=== PATIENT | female | born 1940 | race Caucasian/White ===

== ENCOUNTER 2021-10-10 10:32 | Emergency (ER) | payer MEDICARE, BC, SELFPAY ==
[2021-10-10 10:49] VITALS: BP 181/103; PULSE 104; RESP 18; TEMP 36.6; O2SAT 96; BMI 38.4
--- NOTE | 2021-10-10 11:05 | CRLHL7_ITS ---
For Patients: As a result of the Cures Act, medical imaging exams and procedure reports are released immediately into your electronic medical record. You may view this report before your referring provider. If you have questions, please contact your health care provider. INDICATION: Vomiting, cough. TECHNIQUE: Chest radiograph 1 view COMPARISON: 02/18/2018 FINDINGS: Cardiovascular and mediastinum: The heart silhouette is normal in size and morphology. The mediastinum is normal in appearance. Lungs and pleural spaces: Both lungs are unremarkable in appearance. No sign of pleural effusion seen. No pneumothorax is identified. Bones and soft tissues: No significant findings. IMPRESSION: 1. No acute cardiopulmonary disease is seen. Dictated by Pepe Clay MD @ 10/10/2021 12:02:33 PM Dictated by: Pepe Clay MD @ 10/10/2021 12:02:39 (Electronically Signed)
--- NOTE | 2021-10-10 11:32 | ED_ITS ---
HPI - Nausea/Vomiting/Diarrhea General Chief complaint: Nausea/Vomiting Stated complaint: Vomiting Time Seen by Provider: 10/10/21 11:04 Source: patient, family and RN notes reviewed History of Present Illness HPI Narrative: 81-year-old woman presenting to the emergency department with her daughter with complaint recurrent vomiting. No hematemesis. No fever. No chills/rigors. Began vomiting earlier this morning as continue periodically. She does not have any pain noting though at the same time that she has a high pain tolerance. She does not apparently have any urinary tract symptoms when I inquire about frequency urgency or dysuria she again says she has a high pain tolerance. No ill contacts. Lives relatively independently with her son. Is fully vaccinated for COVID pending another booster. Daughter here was worried that maybe she had some fluid on her lungs as she tends to be coughing around I think these episodes of vomiting. Apart from that she is not short of breath and without chest pain. Reports some years ago that had a cardiac echo though I can not find record of that my review of records here. Unclear reason for that though again had mentioned a history of what sounds like some pulmonary edema/effusion. Medical Problems: Hypertension Near syncope Cataract Surgical Problems: S/P hysterectomy S/P dilatation and curettage S/P tonsillectomy and adenoidectomy Related Data Home Medications Medication Instructions Recorded Confirmed aspirin 81 mg capsule 81 mg PO DAILY 10/10/21 10/10/21 multivitamin 1 tab PO DAILY 10/10/21 10/10/21 Previous Rx's Medication Instructions Recorded hydrochlorothiazide 12.5 mg capsule 12.5 mg PO QDAY #90 caps 09/05/21 Allergies Allergy/AdvReac Type Severity Reaction Status Date / Time Penicillins Allergy Verified 10/10/21 10:49 Review of Systems Status of ROS: Reports: 10 or more systems reviewed and unremarkable except as noted in History and below Exam Narrative: Exam Narrative: Is pleasant with good energy. Fully alert and answering questions easily, speaking fluidly. Breathing easily with clear lungs. Cardiovascular initially heard a couple irregular beats but otherwise it sounded to be quite regular. No MR or G appreciated. By the time of my auscultation I would not say she was actually tachycardic Abdomen with normoactive bowel sounds is little overweight soft and nontender. She has a reproducible/palpable infra-umbilical hernia Lower extremities with dependent edema and prominent small varicosities. Const: Vital Signs, click to edit/add: Vital Signs - 24 hr 10/10/21 10:49 Temperature 97.9 F Pulse Rate [Right Pulse Oximeter] 104 H Respiratory Rate 18 Blood Pressure [Ri ght Upper Arm] 181/103 H Pulse Oximetry 96 Oxygen Delivery Me thod Room Air Documenting provider has reviewed patient's vital signs: yes Course Course Hospital Course: Initiating tentative fluid resuscitation. Blood cultures obtained. Was tachycardic on arrival though I would say more elevated heart rate when I was listening. Reevaluation(s) Reevaluation #1: Remains tachycardic but comfortable. White count not elevated. Pending EKG. CXR by my read appears clear of acute cardiopulmonary disease. Time: 12:18 Reevaluation #2: Continues to feel quite well. Thinks she could discharge home. Labs generally unremarkable other than slightly elevated proBNP. This seems not be a surprise to her. Time: 13:50 Vital Signs Vital signs: Initial Vital Signs Temperature 97.9 F 10/10/21 10:49 Temperature Source Temporal Artery Scan 10/10/21 10:49 Pulse Rate 104 H 10/10/21 10:49 Respiratory Rate 18 10/10/21 10:49 Blood Pressure 181/103 H 10/10/21 10:49 Blood Pressure Mean 129 10/10/21 10:49 Blood Pressure Position Sitting 10/10/21 10:49 Pulse Oximetry 96 10/10/21 10:49 Oxygen Delivery Method 10/10/21 10:49 Vital Signs Temperature 97.9 F 10/10/21 10:49 Pulse Rate 104 H 10/10/21 10:49 Respiratory Rate 18 10/10/21 10:49 Blood Pressure 181/103 H 10/10/21 10:49 Pulse Oximetry 96 10/10/21 10:49 Oxygen Delivery Method 10/10/21 10:49 Temperature 97.9 F 10/10/21 10:49 Pulse Rate 97 10/10/21 13:00 Respiratory Rate 16 10/10/21 13:00 Blood Pressure 175/97 H 10/10/21 13:00 Pulse Oximetry 92 10/10/21 13:00 Oxygen Delivery Method 10/10/21 13:00 MDM - Nausea/Vomiting/Diarrhea Lab Data Attestation: I reviewed the patient's lab results. Labs: Lab Results 10/10/21 10/10/21 10/10/21 Range/Units 11:25 11:25 11:25 WBC 9.19 (4.50-11.00) K/uL RBC 5.46 H (4.00-5.20) m/uL Hgb 15.3 (12.0-16.0) gm/dL Hct 47.0 (33.0-51.0) % MCV 86 (80-100) fL MCH 28 (26-34) pg MCHC 33 (32-36) gm/dL RDW Coeff of Helen 13.8 (11.5-15.5) % Plt Count 115 L (140-440) K/uL Neut % (Auto) 88.7 H (42.0-72.0) % Lymph % (Auto) 7.4 L (20-44) % [place] % (Auto) 3.7 (0.0-11.0) % Eos % (Auto) 0.0 (0.0-7.0) % Baso % (Auto) 0.1 (0.0-3.0) % Neut # (Auto) 8.20 H (1.7-7.0) K/uL Lymph # (Auto) 0.70 L (0.90-2.90) K/uL [place] # (Auto) 0.30 (0.00-0.90) K/UL Eos # (Auto) 0.00 (0.00-0.50) K/uL Baso # (Auto) 0.01 (0.00-0.30) K/uL Abs Immat Gran (auto) 0.01 (0.00-0.30) K/uL VBG pH (7.32-7.43) VBG pCO2 (40-50) mmHG VBG pO2 (25-47) mmHG VBG HCO3 (21-28) mmol/L Sodium 138 (135-149) mmol/L Potassium 3.7 (3.6-5.1) mmol/L Chloride 100 (96-114) mmol/L Carbon Dioxide 27 (20-32) mmol/L BUN 29 (7-30) mg/dL Creatinine 0.9 (0.5-1.5) mg/dL Estimated Creat Clear 30.62 Estimated GFR 63 ml/min Glucose 149 H (60-115) mg/dL Venous Lactic Acid (Serial Order) Calcium 9.0 (8.4-10.6) mg/dL Magnesium 1.8 (1.5-2.6) mg/dL Total Bilirubin 0.7 (0.1-1.5) mg/dL AST 22 (12-35) U/L ALT 15 (4-35) U/L Alkaline Phosphatase 79 (40-150) U/L Troponin I (0.01-0.04) ng/mL C-Reactive Protein 0.6 (0.5-1.0) mg/dL NT-Pro-B Natriuret Pep (0-450) PG/mL Total Protein 7.4 (6.0-8.3) g/dL Albumin 4.2 (3.3-5.0) g/dL SARS-CoV-2 (PCR) Negative SARS-CoV-2 (Negative) Influenza Type A (PCR) Negative PCR FLU A (Negative) Influenza Type B (PCR) Negative PCR FLU B (Negative) POC Troponin I (0.01-0.04) ng/ml 10/10/21 10/10/21 10/10/21 Range/Units 11:25 11:25 11:58 WBC (4.50-11.00) K/uL RBC (4.00-5.20) m/uL Hgb (12.0-16.0) gm/dL Hct (33.0-51.0) % MCV (80-100) fL MCH (26-34) pg MCHC (32-36) gm/dL RDW Coeff of Helen (11.5-15.5) % Plt Count (140-440) K/uL Neut % (Auto) (42.0-72.0) % Lymph % (Auto) (20-44) % [place] % (Auto) (0.0-11.0) % Eos % (Auto) (0.0-7.0) % Baso % (Auto) (0.0-3.0) % Neut # (Auto) (1.7-7.0) K/uL Lymph # (Auto) (0.90-2.90) K/uL [place] # (Auto) (0.00-0.90) K/UL Eos # (Auto) (0.00-0.50) K/uL Baso # (Auto) (0.00-0.30) K/uL Abs Immat Gran (auto) (0.00-0.30) K/uL VBG pH 7.429 (7.32-7.43) VBG pCO2 45 (40-50) mmHG VBG pO2 46.2 (25-47) mmHG VBG HCO3 30 H (21-28) mmol/L Sodium (135-149) mmol/L Potassium (3.6-5.1) mmol/L Chloride (96-114) mmol/L Carbon Dioxide (20-32) mmol/L BUN (7-30) mg/dL Creatinine (0.5-1.5) mg/dL Estimated Creat Clear Estimated GFR ml/min Glucose (60-115) mg/dL Venous Lactic Acid (Serial Order) Calcium (8.4-10.6) mg/dL Magnesium (1.5-2.6) mg/dL Total Bilirubin (0.1-1.5) mg/dL AST (12-35) U/L ALT (4-35) U/L Alkaline Phosphatase (40-150) U/L Troponin I < 0.01 L (0.01-0.04) ng/mL C-Reactive Protein (0.5-1.0) mg/dL NT-Pro-B Natriuret Pep 536 H (0-450) PG/mL Total Protein (6.0-8.3) g/dL Albumin (3.3-5.0) g/dL SARS-CoV-2 (PCR) (Negative) Influenza Type A (PCR) (Negative) Influenza Type B (PCR) (Negative) POC Troponin I (0.01-0.04) ng/ml 10/10/21 Range/Units 11:58 WBC (4.50-11.00) K/uL RBC (4.00-5.20) m/uL Hgb (12.0-16.0) gm/dL Hct (33.0-51.0) % MCV (80-100) fL MCH (26-34) pg MCHC (32-36) gm/dL RDW Coeff of Helen (11.5-15.5) % Plt Count (140-440) K/uL Neut % (Auto) (42.0-72.0) % Lymph % (Auto) (20-44) % [place] % (Auto) (0.0-11.0) % Eos % (Auto) (0.0-7.0) % Baso % (Auto) (0.0-3.0) % Neut # (Auto) (1.7-7.0) K/uL Lymph # (Auto) (0.90-2.90) K/uL [place] # (Auto) (0.00-0.90) K/UL Eos # (Auto) (0.00-0.50) K/uL Baso # (Auto) (0.00-0.30) K/uL Abs Immat Gran (auto) (0.00-0.30) K/uL VBG pH (7.32-7.43) VBG pCO2 (40-50) mmHG VBG pO2 (25-47) mmHG VBG HCO3 (21-28) mmol/L Sodium (135-149) mmol/L Potassium (3.6-5.1) mmol/L Chloride (96-114) mmol/L Carbon Dioxide (20-32) mmol/L BUN (7-30) mg/dL Creatinine (0.5-1.5) mg/dL Estimated Creat Clear Estimated GFR ml/min Glucose (60-115) mg/dL Venous Lactic Acid (Serial Order) Calcium (8.4-10.6) mg/dL Magnesium (1.5-2.6) mg/dL Total Bilirubin (0.1-1.5) mg/dL AST (12-35) U/L ALT (4-35) U/L Alkaline Phosphatase (40-150) U/L Troponin I (0.01-0.04) ng/mL C-Reactive Protein (0.5-1.0) mg/dL NT-Pro-B Natriuret Pep (0-450) PG/mL Total Protein (6.0-8.3) g/dL Albumin (3.3-5.0) g/dL SARS-CoV-2 (PCR) (Negative) Influenza Type A (PCR) (Negative) Influenza Type B (PCR) (Negative) POC Troponin I 0.01 (0.01-0.04) ng/ml ECG Data Attestation: I personally reviewed and interpreted this ECG as follows: (Normal sinus rate of 95. Bifascicular block similar to February of 2018) Discharge Plan Discharge Clinical Impression: Vomiting, Dehydration Patient Disposition: Home w/ Parent or Adult Condition: Stable Additional Instructions: Focus on hydration. Slow advance of diet over the next 24-36 hours. Diluted juices and broths to thicker soups and smoothies. [place]. Rice. Return for intractable vomiting or intractable diarrhea. Marked increase in abdominal pain, associated fever. Zofran from [employer] if needed. Check your blood pressure in a few days a couple of times. Prescriptions: No Action aspirin 81 mg capsule 81 mg PO DAILY multivitamin Tablet 1 tab PO DAILY hydrochlorothiazide 12.5 mg capsule 12.5 mg PO QDAY Qty: 90 3RF Follow Up/Referrals: Pato Simms MD [Primary Care Provider] - Stand Alone Forms: [employer] Info Instructions
[2021-10-10 11:37] LABS: HCO3 VBG 30 mmol/L (21-28); PCO2 VBG 45 mmHG (40-50); PO2 VBG 46.2 mmHG (25-47); pH VBG 7.429 (7.32-7.43)
[2021-10-10 11:39] LABS: Lactate Sepsis w/Reflex* 1.2 mmol/L (0.5-1.9)
[2021-10-10 11:40] VITALS: BP 138/75
[2021-10-10 11:42] LABS: Basophils Absolute Auto 0.01 K/uL (0.00-0.30); Basophils Percent Auto 0.1 % (0.0-3.0); Hemoglobin* 15.3 gm/dL (12.0-16.0); Immature Granulocytes Abs Auto 0.01 K/uL (0.00-0.30); Lymphocytes Percent Auto 7.4 % (20-44); Mean Corpuscular HGB Conc 33 gm/dL (32-36); Mean Corpuscular Hemoglobin 28 pg (26-34); Mean Corpuscular Volume 86 fL (80-100); Monocytes Percent Auto 3.7 % (0.0-11.0); Neutrophils Percent Auto 88.7 % (42.0-72.0); Platelet Count* 115 K/uL (140-440); RDW Coefficient of Variation % 13.8 % (11.5-15.5); Red Blood Count 5.46 m/uL (4.00-5.20); White Blood Count* 9.19 K/uL (4.50-11.00)
[2021-10-10] MEDS: LACTATED RINGERS 1000 ML IV (11:51)
[2021-10-10 11:57] LABS: Slide Review Reflex No
[2021-10-10 12:00] LABS: Albumin* 4.2 g/dL (3.3-5.0); Chloride* 100 mmol/L (96-114); Sodium* 138 mmol/L (135-149)
[2021-10-10 12:01] LABS: Potassium* 3.7 mmol/L (3.6-5.1)
[2021-10-10 12:02] LABS: Creatinine* 0.9 mg/dL (0.5-1.5); Est. Creatinine Clearance* 30.62; Estimated Glomerular Filt Rate 63 ml/min
[2021-10-10 12:03] LABS: Alkaline Phosphatase* 79 U/L (40-150); Aspartate Amino Transferase* 22 U/L (12-35); Bilirubin Total* 0.7 mg/dL (0.1-1.5); Blood Urea Nitrogen* 29 mg/dL (7-30); Carbon Dioxide* 27 mmol/L (20-32); Total Protein* 7.4 g/dL (6.0-8.3)
[2021-10-10 12:04] LABS: Alanine Aminotransferase* 15 U/L (4-35); Glucose* 149 mg/dL (60-115); Magnesium* 1.8 mg/dL (1.5-2.6)
[2021-10-10 12:06] LABS: C Reactive Protein* 0.6 mg/dL (0.5-1.0)
[2021-10-10 12:30] VITALS: BP 138/75; PULSE 91; RESP 16; O2SAT 94
[2021-10-10 12:32] LABS: PCR FLU A Negative PCR FLU A (Negative); PCR FLU B Negative PCR FLU B (Negative)
[2021-10-10 12:33] LABS: SARS PCR* Negative SARS-CoV-2 (Negative)
[2021-10-10 12:38] LABS: NT Pro B Type NatriureticPept* 536 PG/mL (0-450)
[2021-10-10 12:42] LABS: Troponin I* < 0.01 ng/mL (0.01-0.04)
[2021-10-10 12:44] LABS: Troponin, Point-of-Care* 0.01 ng/ml (0.01-0.04)
[2021-10-10 13:00] VITALS: BP 175/97; PULSE 97; RESP 16; O2SAT 92
== END 2021-10-10 14:11 | disposition home or self-care (01) ==
PROVIDERS: Emergency Provider Family Medicine; PCP Family Medicine
DX: E86.0 Dehydration (principal); R11.10 Vomiting, unspecified
CPT/HCPCS: 36415; 71045; 80053; 82803; 83690; 83735; 83880; 84484; 85025; 86140; 87040; 87631; 93005; 96374; 99284; J7120

== ENCOUNTER 2022-08-26 17:04 | Emergency (ER) | payer MEDICARE, BC, SELFPAY ==
[2022-08-26] VITALS (19 sets, daily range): BP systolic 125–160; BP diastolic 51–81; PULSE 76–97; RESP 22; TEMP 36.3; O2SAT 95–99
--- NOTE | 2022-08-26 17:29 | ED_ITS ---
HPI - General Adult General Chief complaint: Chest Pain Stated complaint: Chest Pain Time Seen by Provider: 08/26/22 17:16 History of Present Illness HPI narrative: chest pain since this am with some radiation to right arm, was resting when it came on, has not subsided and remains constant, mild nausea 82-year-old woman presenting to the emergency department with complaint of a burning type midsternal chest discomfort. Denies significant heartburn. This began six or seven hours ago and has continued though by the time I am seeing her, it has lessened markedly. Occurred at rest. She doesn't have any heart problems. No significant family history. She then started to have some discomfort into her right arm of a similar quality. This prompted more concern. No shortness of breath. Not exactly chest pain. No lightheadedness. No arrhythmia noted. No fevers or vomiting episodes recently. no diarrhea. presents initially with her son and then with her daughter. Related Data Home Medications Medication Instructions Recorded Confirmed aspirin 81 mg capsule 81 mg PO DAILY 10/10/21 10/10/21 multivitamin 1 tab PO DAILY 10/10/21 10/10/21 Previous Rx's Medication Instructions Recorded hydrochlorothiazide 12.5 mg capsule 12.5 mg PO QDAY #90 caps 09/05/21 Allergies Allergy/AdvReac Type Severity Reaction Status Date / Time Penicillins Allergy Verified 08/29/22 10:09 Review of Systems Status of ROS: Reports: 6 or more systems reviewed and unremarkable except as noted in History and below [facility] Social History Smoking Status: Unknown if ever smoked Exam Narrative: Exam Narrative: Pleasant. NAD. Rather high energy. Skin is warm and dry. Extremities are well perfused without edema. She's moving extremities without difficulty. No sensory deficits and no weakness. Lungs are clear not clearly able to reproduce to palpation her pain in the upper back/periscapular area. No flank pain. Abdomen is overweight soft and little uncomfortable to palpation in the epigastrium. No chest pain to palpation. Heart is in a regular rhythm and in an elevated rate. Skin is warm and dry. Const: Vital Signs, click to edit/add: Vital Signs - 24 hr 08/26/22 17:15 Temperature 97.3 F L Pulse Rate [Right Pulse Oximeter] 96 Respiratory Rate 22 Blood Pressure [Le ft Upper Arm] 160/75 H Pulse Oximetry 99 Oxygen Delivery Me thod Room Air Documenting provider has reviewed patient's vital signs: yes Course Vital Signs Vital signs: Initial Vital Signs Temperature 97.3 F L 08/26/22 17:15 Temperature Source Temporal Artery Scan 08/26/22 17:15 Pulse Rate 96 08/26/22 17:15 Respiratory Rate 22 08/26/22 17:15 Respiratory Effort Normal, Spontaneous, Non-Labored 08/26/22 17:15 Respiratory Depth Normal 08/26/22 17:15 Respiratory Pattern Normal 08/26/22 17:15 Blood Pressure 160/75 H 08/26/22 17:15 Blood Pressure Mean 103 08/26/22 17:15 Blood Pressure Position Sitting 08/26/22 17:15 Pulse Oximetry 99 08/26/22 17:15 Oxygen Delivery Method Room Air 08/26/22 17:15 Vital Signs Temperature 97.3 F L 08/26/22 17:15 Pulse Rate 96 08/26/22 17:15 Respiratory Rate 22 08/26/22 17:15 Blood Pressure 160/75 H 08/26/22 17:15 Pulse Oximetry 99 08/26/22 17:15 Oxygen Delivery Method Room Air 08/26/22 17:15 Temperature 97.3 F L 08/26/22 17:15 Pulse Rate 96 08/26/22 20:53 Respiratory Rate 22 08/26/22 17:15 Blood Pressure 143/51 H 08/26/22 20:02 Pulse Oximetry 96 08/26/22 20:53 Oxygen Delivery Method Room Air 08/26/22 17:15 Medical Decision Making MDM Narrative Medical decision making narrative: I think this does warrant evaluation for vascular disruption, cardiovascular event including dysrhythmia or ischemic episode, evaluation for upper abdominal pain including pancreatitis or gallbladder/liver disease. No respiratory symptoms but I suppose it could be a low lying pneumonia, maybe pulmonary embolus or pnaumothorax CXR by my read wnl. no pneumo. No interventions needed. Labs most remarkable for elevated transaminases and lipase. I think this degree of inflammation probably explains mild elevation in d-dimer as well. Limited and ultrasound was done. I discussed these findings with the screen handler. Essentially cholelithiasis without inflammatory changes. FINDINGS: Liver: Normal in size and echotexture. No suspicious masses. No intrahepatic biliary dilatation. Gallbladder: Contains several small stones. Normal wall thickness. No pericholecystic fluid. Common bile duct: 9 mm. This is within normal limits for age Pancreas: Limited visualization is unremarkable. Right kidney: Normal in size. 1.3 cm simple exophytic cyst. Mild prominence of the renal collecting system, could represent mild hydronephrosis.. Vasculature: Proximal abdominal aorta and IVC are unremarkable. IMPRESSION: Cholelithiasis. No evidence for cholecystitis. Mild prominence of the renal collecting system, could represent mild hydronephrosis. Unremarkable liver. Discussed ultrasound findings and labs with general surgery. Suspect possibly a passed stone. Recommending follow up for repeat labs and general surgery consultation. Ms. Sylvester painfree and anxious to leave for some time. See patient discharge plan. Lab Data Lab results reviewed: Yes I reviewed the patient's lab results Labs: Lab Results 08/26/22 08/26/22 Range/Units 17:42 17:50 WBC 6.99 (4.50-11.00) K/uL RBC 5.35 H (4.00-5.20) m/uL Hgb 14.7 (12.0-16.0) gm/dL Hct 46.2 (33.0-51.0) % MCV 86 (80-100) fL MCH 28 (26-34) pg MCHC 32 (32-36) gm/dL RDW Coeff of Helen 13.6 (11.5-15.5) % Plt Count 93 L (140-440) K/uL Neut % (Auto) 84.1 H (42.0-72.0) % Lymph % (Auto) 10.0 L (20-44) % [place] % (Auto) 5.4 (0.0-11.0) % Eos % (Auto) 0.1 (0.0-7.0) % Baso % (Auto) 0.3 (0.0-3.0) % Neut # (Auto) 5.90 (1.7-7.0) K/uL Lymph # (Auto) 0.70 L (0.90-2.90) K/uL [place] # (Auto) 0.40 (0.00-0.90) K/UL Eos # (Auto) 0.01 (0.00-0.50) K/uL Baso # (Auto) 0.02 (0.00-0.30) K/uL Abs Immat Gran (auto) 0.01 (0.00-0.30) K/uL Imm/Tot Granulo (auto) 0.1 % D-Dimer Quant (PE/DVT) 1.76 H (0.00-0.50) ug/ml Sodium 136 (135-149) mmol/L Potassium 4.3 (3.6-5.1) mmol/L Chloride 100 (96-114) mmol/L Carbon Dioxide 31 (20-32) mmol/L BUN 30 (7-30) mg/dL Creatinine 0.9 (0.5-1.5) mg/dL Estimated GFR 63 ml/min Glucose 143 H (60-115) mg/dL Calcium 9.2 (8.4-10.6) mg/dL Total Bilirubin 2.6 H (0.1-1.5) mg/dL Direct Bilirubin 1.7 H (0.0-0.5) mg/dL AST 428 H (12-35) U/L ALT 482 H (4-35) U/L Alkaline Phosphatase 124 (40-150) U/L Troponin I < 0.01 L (0.01-0.04) ng/mL C-Reactive Protein < 0.5 L (0.5-1.0) mg/dL NT-Pro-B Natriuret Pep 791 pg/mL Total Protein 7.0 (6.0-8.3) g/dL Albumin 4.1 (3.3-5.0) g/dL Lipase 6627 H (23-300) U/L POC Troponin I 0.00 L (0.01-0.04) ng/ml ECG Data Attestation: I personally reviewed and interpreted this ECG as follows: (Bifascicular block at a rate of 98) Discharge Plan Discharge Clinical Impression: Abdominal pain, epigastric, Cholelithiasis Patient Disposition: Home w/ Parent or Adult Condition: Improved Additional Instructions: stay well hydrated. return for increased and persistent pain, repeated vomiting, associated fever. please follow up in clinic to recheck labs in the middle of next week. please also call to schedule with General Surgery within the next 2 weeks. Prescriptions: No Action aspirin 81 mg capsule 81 mg PO DAILY multivitamin Tablet 1 tab PO DAILY hydrochlorothiazide 12.5 mg capsule 12.5 mg PO QDAY Qty: 90 3RF Follow Up/Referrals: Pato Simms MD [Primary Care Provider] - Stand Alone Forms: [employer] Info Instructions
--- NOTE | 2022-08-26 17:42 | CRLHL7_ITS ---
For Patients: As a result of the Century Cures Act, medical imaging exams and procedure reports are released immediately into your electronic medical record. You may view this report before your referring provider. If you have questions, please contact your health care provider. INDICATION: Burning mid chest pain. TECHNIQUE: Portable AP chest. COMPARISON: 10/10/2021. FINDINGS: Lungs are clear. Normal heart size and pulmonary vascularity. No pleural effusion. No pneumothorax. IMPRESSION: Normal chest. Dictated by Desmond Santiago MD @ 08/26/2022 7:09:02 PM (Electronically Signed)
[2022-08-26 18:02] LABS: Basophils Absolute Auto 0.02 K/uL (0.00-0.30); Basophils Percent Auto 0.3 % (0.0-3.0); Eosinophils Absolute Auto 0.01 K/uL (0.00-0.50); Eosinophils Percent Auto 0.1 % (0.0-7.0); Hematocrit 46.2 % (33.0-51.0); Hemoglobin* 14.7 gm/dL (12.0-16.0); Immature Granulocytes Abs Auto 0.01 K/uL (0.00-0.30); Immature Granulocytes Pct Auto 0.1 %; Mean Corpuscular HGB Conc 32 gm/dL (32-36); Mean Corpuscular Hemoglobin 28 pg (26-34); Mean Corpuscular Volume 86 fL (80-100); Monocytes Percent Auto 5.4 % (0.0-11.0); Neutrophils Percent Auto 84.1 % (42.0-72.0); Platelet Count* 93 K/uL (140-440); RDW Coefficient of Variation % 13.6 % (11.5-15.5); Red Blood Count 5.35 m/uL (4.00-5.20); White Blood Count* 6.99 K/uL (4.50-11.00)
[2022-08-26 18:27] LABS: Slide Review Reflex No
[2022-08-26 18:28] LABS: Chloride* 100 mmol/L (96-114)
[2022-08-26 18:29] LABS: Potassium* 4.3 mmol/L (3.6-5.1); Sodium* 136 mmol/L (135-149)
[2022-08-26 18:30] LABS: Albumin* 4.1 g/dL (3.3-5.0)
[2022-08-26 18:31] LABS: Creatinine* 0.9 mg/dL (0.5-1.5); Estimated Glomerular Filt Rate 63 ml/min
[2022-08-26 18:32] LABS: Blood Urea Nitrogen* 30 mg/dL (7-30); Carbon Dioxide* 31 mmol/L (20-32); D Dimer Quantitative* 1.76 ug/ml (0.00-0.50)
[2022-08-26 18:33] LABS: Alanine Aminotransferase* 482 U/L (4-35); Alkaline Phosphatase* 124 U/L (40-150); Aspartate Amino Transferase* 428 U/L (12-35); Bilirubin Direct* 1.7 mg/dL (0.0-0.5); Bilirubin Total* 2.6 mg/dL (0.1-1.5); Calcium* 9.2 mg/dL (8.4-10.6); Glucose* 143 mg/dL (60-115)
[2022-08-26 18:35] LABS: C Reactive Protein* < 0.5 mg/dL (0.5-1.0)
[2022-08-26 18:49] LABS: NT Pro B Type NatriureticPept* 791 pg/mL; Troponin I* < 0.01 ng/mL (0.01-0.04)
--- NOTE | 2022-08-26 18:54 | CRLHL7_ITS ---
For Patients: As a result of the Century Cures Act, medical imaging exams and procedure reports are released immediately into your electronic medical record. You may view this report before your referring provider. If you have questions, please contact your health care provider. INDICATION: Abdominal pain, elevated transaminases. TECHNIQUE: Ultrasound abdomen limited. Sonographic images of the right upper quadrant were obtained using berry-scale and color Doppler images. COMPARISON: None. FINDINGS: Liver: Normal in size and echotexture. No suspicious masses. No intrahepatic biliary dilatation. Gallbladder: Contains several small stones. Normal wall thickness. No pericholecystic fluid. Common bile duct: 9 mm. This is within normal limits for age Pancreas: Limited visualization is unremarkable. Right kidney: Normal in size. 1.3 cm simple exophytic cyst. Mild prominence of the renal collecting system, could represent mild hydronephrosis.. Vasculature: Proximal abdominal aorta and IVC are unremarkable. IMPRESSION: Cholelithiasis. No evidence for cholecystitis. Mild prominence of the renal collecting system, could represent mild hydronephrosis. Unremarkable liver. Dictated by Chris Jaramillo MD @ 08/26/2022 9:31:09 PM (Electronically Signed)
[2022-08-26 19:55] LABS: Lipase* 6627 U/L (23-300)
== END 2022-08-26 22:00 | disposition home or self-care (01) ==
PROVIDERS: Emergency Provider Family Medicine; PCP Family Medicine
DX: R10.13 Epigastric pain (principal); K80.20 Calculus of gallbladder without cholecystitis without obstruction
CPT/HCPCS: 36415; 71045; 76705; 80048; 80076; 83690; 83880; 84484; 85025; 85379; 86140; 93005; 94761; 99284; 99285

== ENCOUNTER 2022-08-30 15:10 | Outpatient (CLI) | payer MEDICARE, BC, SELFPAY | END 2022-08-30 15:11 | disposition home or self-care (01) | PROVIDERS: PCP Family Medicine; Visit Provider Family Medicine | DX: R10.13 Epigastric pain (principal); I10 Essential (primary) hypertension; K80.20 Calculus of gallbladder without cholecystitis without obstruction | CPT/HCPCS: 80076; 83690 ==

== ENCOUNTER 2022-09-14 08:51 | Day surgery (SDC) | payer MEDICARE, BC, SELFPAY ==
[2022-09-14] VITALS (10 sets, daily range): BP systolic 122–168; BP diastolic 67–93; PULSE 72–89; RESP 14–18; TEMP 36.4–36.8; O2SAT 92–100; BMI 37.0
[2022-09-14] MEDS: LACTATED RINGERS 1000 ML 1,000 ML 100 ML IV (09:00)
[2022-09-14] MEDS: SODIUM CHLORIDE 0.9 % (FLUSH) 10 ML SYRINGE IVF (10:07)
--- NOTE | 2022-09-14 10:30 | CRLHL7_ITS ---
For Patients: As a result of the Century Cures Act, medical imaging exams and procedure reports are released immediately into your electronic medical record. You may view this report before your referring provider. If you have questions, please contact your health care provider. INDICATION : Laparoscopic cholecystectomy. TECHNIQUE : Intraoperative cholangiogram. Contrast injected via gallbladder neck and cystic duct. FINDINGS : Fluoroscopy time was 43.0 seconds. Five images were obtained. IMPRESSION : Normal caliber intra and extrahepatic ducts. No filling defects. Contrast seen within the duodenum. Normal intraoperative cholangiogram. Dictated by Nahum Lewis MD @ 09/14/2022 1:18:14 PM (Electronically Signed)
[2022-09-14] MEDS: BUPIVACAINE 0.25% 30 ML INJECTION (10:50)
--- NOTE | 2022-09-14 10:58 | W.ANESCHARGE ---
Anesthesia Charges Start Date/Time Anesthesia Start Date: 09/14/22 Anesthesia Start Time: 10:26 Stop Date/Time Anesthesia Stop Date: 09/14/22 Anesthesia Stop Time: 12:43 Summary Extremes of Age - Over 70 or under 1: MDA
[2022-09-14] MEDS: 0.9% SODIUM CHL 50 ML VIAL INJECTION (11:48)
[2022-09-14] MEDS: IOPAMIDOL 50 ML VIAL INJECTION (11:48)
--- NOTE | 2022-09-14 12:45 | PM.GSPRC ---
Operative Note Pre-op diagnosis: 1. Cholelithiasis 2. Recent gallstone pancreatitis Post-op diagnosis: Same Type of Procedure: 1. Laparoscopic cholecystectomy 2. Intraoperative cholangiogram Indications: The patient is an 82-year-old female who approximately 2 weeks ago presented to the ER with severe chest and abdominal pain. Workup revealed elevated lipase, LFTs and bilirubin. She had gallstones and common bile duct dilatation. Her pain improved and she was discharged home. On an outpatient basis her labs were recheck and had normalized. She was referred to surgery. I recommended cholecystectomy with intraoperative cholangiogram for a diagnosis of gallstone pancreatitis. After discussion of risks and benefits she agreed to proceed. Procedure Description: After discussing the risks and benefits of the procedure, the patient signed informed consent.? The operative site was marked and the patient was brought to the operating room and placed on the operating table in supine position.? Care was taken to pad the patient's pressure points.?? The patient was then intubated by anesthesia.?? The operative site was then prepped and draped in the usual sterile fashion.? A time-out was then performed. Entrance to the abdomen was gained via a 5 mm Visiport in the left upper quadrant. The abdomen was insufflated and briefly surveyed for signs of injury. There was none. She had adhesions about the umbilicus as well as to the falciform ligament. I was able to create a window with the camera to enter the right abdomen. The right upper quadrant did not have significant adhesions. I placed 2 5 mm working ports in the right upper abdomen along the costal margin. Through this I then passed the camera and was able to lyse the filmy adhesions between the omentum and the abdominal wall sharply with a scissor. Once I was able to create enough space to place my camera port, a 10 mm port was placed just superior and on the right side of the umbilicus. The patient was then placed in reverse Trendelenburg position with the right side up. The gallbladder fundus was grasped and retracted cephalad. There were adhesions to the gallbladder from the fundus to the infundibulum. These were dissected down carefully using cautery. The infundibulum was grasped. A combination of hook cautery and blunt dissection was used to carefully dissect out the cystic duct and artery until they could clearly be seen entering the gallbladder without any intervening structures. The gallbladder was dissected off the cystic plate to achieve the critical view. Once this was achieved the cystic artery was clipped with 2 clips proximally and 1 clip distally and transected with the scissors. The cystic duct was clipped proximally and a ductotomy was created. The distal cystic duct was palpated and found to be impacted with stones. These were very carefully moved pushed backwards out of the duct until bile flowed briskly from the duct opening. I then advanced a cholangiocatheter and performed a saline leak test. Fluoroscopy was brought into the field. Half-strength Omnipaque Dye was injected into the cystic duct with brisk filling of the common bile duct, right and left hepatic ducts and there was filling of the duodenum. Contrast however was very light and therefore full strength dye was injected and it did not appear as though there were any filling defects in the common bile duct. There was contrast in the duodenum. The cholangiocatheter was removed and the duct was clipped with 2 clips distal. The duct was then transected with a scissor. The gallbladder was then taken off of the liver bed and removed from the abdomen using an Endo-Catch bag. The gallbladder bed was surveyed for hemostasis which appeared adequate. A small amount of bile which had spilled was suctioned from the abdomen and care was taken to remove all spilled gallstones. The ports were then removed and the abdomen desufflated. The 10 port fascia was closed with 0 Vicryl. The skin was closed with absorbable subcuticular suture. Sterile dressings were then applied. Instrument sponge and needle counts were correct at the end of the case. The patient was then woken and transferred to the PACU in stable condition. Findings: 1. Multiple intra-abdominal adhesions 2. Multiple gallstones in the gallbladder 3. No filling defect noted on cholangiogram Anesthesia: GETA Surgeon: Evy Ghotra MD Estimated blood loss (mL): 10 Specimen: Gallbladder Condition: stable Disposition: PACU
--- NOTE | 2022-09-14 12:48 | W.ANESCHARGE ---
Anesthesia Charges Start Date/Time Anesthesia Start Date: 09/14/22 Anesthesia Start Time: 10:26 Stop Date/Time Anesthesia Stop Date: 09/14/22 Anesthesia Stop Time: 12:43
== END 2022-09-14 14:23 | disposition home or self-care (01) ==
PROVIDERS: PCP Family Medicine; Visit Provider Surgery
PROC: 0FT44ZZ Resection of Gallbladder, Percutaneous Endoscopic Approach (ICD-10-PCS; CPT 47563; principal; 2022-09-14 10:30)
DX: K85.10 Biliary acute pancreatitis without necrosis or infection (principal); K80.10 Calculus of gallbladder with chronic cholecystitis without obstruction; K82.8 Other specified diseases of gallbladder
CPT/HCPCS: 47563; 00790; 74300; 76000; 88304; 99100; J0330; J0665; J1100; J1885; J2371; J2405; J2704; J3010; J3370; J3490; J7050; J7120; Q9967

== ENCOUNTER 2023-10-29 13:31 | Emergency (ER) | payer MEDICARE, BC, SELFPAY ==
[2023-10-29 13:40] VITALS: BP 157/82; PULSE 84; RESP 16; TEMP 36.4; O2SAT 98; BMI 39.1
--- NOTE | 2023-10-29 13:58 | ED.ABDPAIN ---
HPI - Abdominal Pain General Date Seen: 10/29/23 Chief Complaint: Abdominal Pain Stated Complaint: abd pain, hernia Time Seen by Provider: 10/29/23 13:44 Source: patient Mode of arrival: ambulatory Limitations: no limitations History of Present Illness HPI narrative: Patient is an 83-year-old female presenting to the emergency department for abdominal pain. She has a ventral hernia that she states she has had for while and she usually she can reduce but noticed today it was painful and she cannot reduce it. Has had some mild nausea but has not had any vomiting. Is only painful when she touches her hernia. Denies fevers, chills, weakness, diarrhea, constipation, chest pain, shortness of breath. Previous abdominal surgery includes a cholecystectomy. Has not had previous surgeries on this hernia. No other concerns noted. Related Data Home Medications ?Medication ?Instructions ?Recorded ?Confirmed aspirin 81 mg capsule 81 mg PO DAILY 10/10/21 09/26/22 multivitamin 1 tab PO DAILY 10/10/21 09/26/22 naproxen sodium 220 mg tablet 220 mg PO QDAY PRN 08/30/22 09/26/22 (Aleve) Previous Rx's ?Medication ?Instructions ?Recorded hydrocodone 5 mg-acetaminophen 325 0.5 - 1 tab PO Q6H PRN Pain #5 tabs 09/14/22 mg tablet hydrochlorothiazide 12.5 mg capsule 12.5 mg PO QDAY #90 caps 08/22/23 Allergies Allergy/AdvReac Type Severity Reaction Status Date / Time Penicillins Allergy Verified 09/26/22 09:44 Review of Systems Status of ROS Reports: 10 or more systems reviewed and unremarkable except as noted in History and below [facility] Medical History Hypertension ?I10 - Essential (primary) hypertension (ICD-10) Surgical History Status post D&C ?Z98.890 - Other specified postprocedural states (ICD-10) Status post tonsillectomy and adenoidectomy ?Z90.89 - Acquired absence of other organs (ICD-10) Status post hysterectomy ?Z90.710 - Acquired absence of both cervix and uterus (ICD-10) Social History Narrative: No tobacco or alcohol use. Lives with son. 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 Smoking Status: Unknown if ever smoked How often do you have a drink containing alcohol: never AUDIT-C Alcohol total score: 0 Non-prescribed substance use: denies use Caffeine: Yes Exam Narrative: Exam Narrative: Const: Well-nourished, Well-developed, in mild distress Eyes: PERRL, no conjunctival injection, and symmetrical lids HENT: Atraumatic external nose and ears. Moist mucous membranes. Neck: Symmetric, trachea midline, No thyromegaly. CVS: RRR, No murmurs or gallops. Peripheral pulses 2+ and equal in all extremities RESP: Unlabored respiratory effort. Clear to auscultation bilaterally. GI: Ventral hernia noted just below the umbilicus that is tender to palpation and firm. No overlying skin changes. No rebound or guarding. MSK:Extremities w/o deformity, Normal Active ROM Skin: Warm, Dry. No rashes or lesions. Neuro: Normal Muscle tone, No focal neurological deficits. Psych: Awake, Alert, & Oriented x3. Appropriate mood and affect. Const: Vital Signs, click to edit/add: Vital Signs - 24 hr 10/29/23 13:40 10/29/23 14:37 10/29/23 14:45 Temperature 97.5 F L Pulse Rate 75 65 Pulse Rate [Right Pulse Oximeter] 84 Respiratory Rate 16 Blood Pressure [Ri ght Upper Arm] 157/82 H Pulse Oximetry 98 98 Oxygen Delivery Me thod Room Air 10/29/23 14:50 Temperature Pulse Rate Pulse Rate [Right Pulse Oximeter] Respiratory Rate 16 Blood Pressure [Ri ght Upper Arm] Pulse Oximetry Oxygen Delivery Me thod Course Vital Signs Vital signs: Initial Vital Signs Temperature 97.5 F L 10/29/23 13:40 Temperature Source Temporal Artery Scan 10/29/23 13:40 Pulse Rate 84 10/29/23 13:40 Pulse Rhythm Regular 10/29/23 13:40 Pulse Strength 3+ Normal 10/29/23 13:40 Respiratory Rate 16 10/29/23 13:40 Blood Pressure 157/82 H 10/29/23 13:40 Blood Pressure Mean 107 H 10/29/23 13:40 Blood Pressure Position Sitting 10/29/23 13:40 Pulse Oximetry 98 10/29/23 13:40 Oxygen Delivery Method Room Air 10/29/23 13:40 Vital Signs Temperature 97.5 F L 10/29/23 13:40 Pulse Rate 84 10/29/23 13:40 Respiratory Rate 16 10/29/23 13:40 Blood Pressure 157/82 H 10/29/23 13:40 Pulse Oximetry 98 10/29/23 13:40 Oxygen Delivery Method Room Air 10/29/23 13:40 Temperature 97.5 F L 10/29/23 13:40 Pulse Rate 65 10/29/23 14:45 Respiratory Rate 16 10/29/23 14:50 Blood Pressure 157/82 H 10/29/23 13:40 Pulse Oximetry 98 10/29/23 14:45 Oxygen Delivery Method Room Air 10/29/23 13:40 Medications Administered Medications: Discontinued Medications Generic Name Dose Route Start Last Admin Trade Name Freq PRN Reason Stop Dose Admin Morphine Sulfate 4 mg 10/29/23 13:50 10/29/23 14:11 Morphine 4 Mg/Ml Inj IVP 10/29/23 13:51 4 mg ONCE ONE Administration Ondansetron HCl 4 mg 10/29/23 13:50 10/29/23 14:12 Ondansetron 2 Mg/Ml Inj IVP 10/29/23 13:51 4 mg ONCE ONE Administration MDM - Abdominal Pain MDM Narrative Medical decision making narrative: Patient is a 83-year-old female presenting for a ventral hernia. At this time appears to be incarcerated. She is not appearing systemically sick and only has pain on palpation. There are no overlying skin changes. Do not believe this is strangulated at this time. Will give her pain medication and Zofran and then apply an ice pack in place in Trendelenburg position. Will try to reduce hernia after that. I was able to reduce the patient's hernia at all her symptoms have fully resolved now. She states she is feeling well. Will p.o. challenge her. Monitor for an hour to make sure she is doing well. I do not believe imaging is necessary at this time as symptoms have resolved. Discharge Plan Discharge Clinical Impression: Ventral hernia Qualifiers: Obstruction and gangrene presence: without obstruction or gangrene Qualified Code(s): K43.9 - Ventral hernia without obstruction or gangrene Patient Disposition: Home, Self-Care Condition: Improved Instructions: Ventral Hernia Repair (DC) Additional Instructions: Follow-up with general surgery for possible surgery for your hernia. Call them at [phone]. Return to emergency department for new or worsening symptoms. Prescriptions: No Action naproxen sodium [Aleve] 220 mg tablet 220 mg PO QDAY PRN hydrocodone-acetaminophen 5-325 mg Tablet 0.5 - 1 tab PO Q6H PRN (Reason: Pain) Qty: 5 0RF aspirin 81 mg capsule 81 mg PO DAILY multivitamin Tablet 1 tab PO DAILY hydrochlorothiazide 12.5 mg capsule 12.5 mg PO QDAY Qty: 90 0RF Follow Up/Referrals: Pato Simms MD [Primary Care Provider] - Stand Alone Forms: [facility] - Addiction Treatment Reviews & Information Info Instructions
[2023-10-29] MEDS: MORPHINE 4 MG/ML INJ IVP (14:11)
[2023-10-29] MEDS: ONDANSETRON 2 MG/ML inj 4 MG IVP (14:12)
[2023-10-29 14:37] VITALS: PULSE 75
[2023-10-29 14:45] VITALS: PULSE 65; O2SAT 98
[2023-10-29 14:50] VITALS: RESP 16
== END 2023-10-29 16:23 | disposition home or self-care (01) ==
PROVIDERS: Emergency Provider Student in an Organized Health Care Education/Training Program; PCP Family Medicine
DX: K43.0 Incisional hernia with obstruction, without gangrene (principal)
CPT/HCPCS: 94761; 96374; 96375; 99283; 99284; J2270; J2405

== ENCOUNTER 2023-11-02 20:16 | Day surgery (SDC) | payer MEDICARE, BC, SELFPAY ==
[2023-11-02] VITALS (11 sets, daily range): BP systolic 134–163; BP diastolic 66–104; PULSE 72–100; RESP 20; TEMP 36.1; O2SAT 93–99; BMI 37.8
--- NOTE | 2023-11-02 20:22 | CRLHL7_ITS ---
For Patients: As a result of the Century Cures Act, medical imaging exams and procedure reports are released immediately into your electronic medical record. You may view this report before your referring provider. If you have questions, please contact your health care provider. INDICATION: Vomiting, pain, history of ventral hernia. TECHNIQUE: CT abdomen and pelvis without contrast. COMPARISON: None. FINDINGS: Lower chest: Unremarkable. Liver: Normal in size and attenuation. No suspicious masses. Gallbladder and bile ducts: Status post cholecystectomy. No abnormal biliary ductal dilatation. Pancreas: Unremarkable. No mass or inflammation. Spleen: Normal in size. No masses. Adrenal glands: Normal in size. No nodules. Kidneys: 4.7 cm simple left cortical renal cyst. Bilateral parapelvic cysts. No hydronephrosis, stone, or suspicious mass. GI tract: Small to moderate-sized hiatal hernia. Small right periumbilical hernia containing a short segment of small bowel with surrounding inflammatory changes. There is proximal dilatation of the small bowel with air-fluid levels prior to entering the hernia, compatible with obstruction. No pneumatosis or evidence of perforation. Diverticulosis. No pericolonic inflammation. The appendix is not clearly visualized. Vasculature: Normal caliber abdominal aorta with mild atherosclerotic calcification. Lymph nodes: No lymphadenopathy. Peritoneum/Abdominal Wall: Unremarkable. No free air or significant free fluid. Pelvis: Well-circumscribed 6.6 x 5.7 x 6.9 cm simple cystic lesion within the left adnexa. Status post hysterectomy. Bones: Unremarkable for age. IMPRESSION: 1. Small right paraumbilical hernia containing a short segment of small bowel causing small-bowel obstruction. No evidence for bowel perforation or ischemia. Recommend surgical consultation. 2. Nonaggressive appearing 6.9 x 6.6 x 5.7 cm simple cystic lesion within the left adnexa. This could represent an ovarian cystic neoplasm or a chronic seroma in the setting of prior hysterectomy. Consider outpatient pelvic ultrasound for further evaluation, if not previously performed. 3. [id number] hiatal hernia. Please note that all CT scans at this facility use dose modulation, iterative reconstruction, and/or weight-based dosing when appropriate to reduce radiation dose to as low as reasonably achievable. Dictated by Chris Jaramillo MD @ 11/02/2023 9:54:16 PM (Electronically Signed)
--- NOTE | 2023-11-02 20:24 | ED.GENADULT ---
HPI - General Adult General Chief complaint: Abdominal Pain Stated complaint: abdominal pain/vomiting Time Seen by Provider: 11/02/23 20:17 History of Present Illness HPI narrative: 83-YEAR-OLD FEMALE PRESENTS WITH 1 HOUR HISTORY OF VOMITING AND ABDOMINAL PAIN. She was seen recently had a ventral hernia reduced. She otherwise has felt well, no rigors, no shaking chills, no hematemesis. She is unclear why she is vomiting. This has happened for about the last hour. She is reporting some diffuse abdominal pain but no localized pain. She has had a history of cholangiogram as well as gallstone pancreatitis ventral hernia is noted hypertension and a cataract. She presents for evaluation. She was here about 4 days ago with a ventral hernia issue. No leg swelling, no edema, no shortness of breath, no chest pain. No rigors or chills. No dysuria, or hematuria. Related Data Home Medications ?Medication ?Instructions ?Recorded ?Confirmed aspirin 81 mg capsule 81 mg PO DAILY 10/10/21 09/26/22 multivitamin 1 tab PO DAILY 10/10/21 09/26/22 naproxen sodium 220 mg tablet 220 mg PO QDAY PRN 08/30/22 09/26/22 (Aleve) Previous Rx's ?Medication ?Instructions ?Recorded hydrocodone 5 mg-acetaminophen 325 0.5 - 1 tab PO Q6H PRN Pain #5 tabs 09/14/22 mg tablet hydrochlorothiazide 12.5 mg capsule 12.5 mg PO QDAY #90 caps 08/22/23 Allergies Allergy/AdvReac Type Severity Reaction Status Date / Time Penicillins Allergy Verified 09/26/22 09:44 Review of Systems Status of ROS: Reports: 6 or more systems reviewed and unremarkable except as noted in History and below [facility] Medical History Hypertension ?I10 - Essential (primary) hypertension (ICD-10) Surgical History Status post D&C ?Z98.890 - Other specified postprocedural states (ICD-10) Status post tonsillectomy and adenoidectomy ?Z90.89 - Acquired absence of other organs (ICD-10) Status post hysterectomy ?Z90.710 - Acquired absence of both cervix and uterus (ICD-10) Social History Narrative: No tobacco or alcohol use. Lives with son. 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 Smoking Status: Unknown if ever smoked How often do you have a drink containing alcohol: never AUDIT-C Alcohol total score: 0 Non-prescribed substance use: denies use Caffeine: Yes Exam Narrative: Exam Narrative: Objective: In general the patient is in no apparent distress she is talkative noncyanotic, alert orient x3 HEENT is unremarkable no scleral icterus no facial asymmetry Neck is supple Pulse regular Abdomen obese nontender no masses no ventral hernia noted. Bowel sounds hypoactive but present. Extremities are no edema neurologic nonfocal. Skin is warm and dry peripheral perfusion is good Const: Vital Signs, click to edit/add: Vital Signs - 24 hr 11/02/23 20:20 11/02/23 21:35 11/02/23 21:36 Temperature 97.0 F L Pulse Rate 83 82 Pulse Rate [Left P ulse Oximeter] 100 Respiratory Rate 20 Blood Pressure 142/89 H Blood Pressure [Ri ght Upper Arm] 157/104 H Pulse Oximetry 99 93 94 Oxygen Delivery Me thod Room Air 11/02/23 21:45 11/02/23 22:00 11/02/23 22:03 Temperature Pulse Rate 82 85 94 Pulse Rate [Left P ulse Oximeter] Respiratory Rate Blood Pressure 163/102 H Blood Pressure [Ri ght Upper Arm] Pulse Oximetry 95 95 96 Oxygen Delivery Me thod 11/02/23 22:04 11/02/23 22:15 11/02/23 22:30 Temperature Pulse Rate 91 88 72 Pulse Rate [Left P ulse Oximeter] Respiratory Rate Blood Pressure Blood Pressure [Ri ght Upper Arm] Pulse Oximetry 96 96 96 Oxygen Delivery Me thod 11/02/23 22:33 11/02/23 22:57 Temperature Pulse Rate 82 85 Pulse Rate [Left P ulse Oximeter] Respiratory Rate Blood Pressure 134/66 Blood Pressure [Ri ght Upper Arm] Pulse Oximetry 93 94 Oxygen Delivery Me thod Course Vital Signs Vital signs: Initial Vital Signs Temperature 97.0 F L 11/02/23 20:20 Temperature Source Temporal Artery Scan 11/02/23 20:20 Pulse Rate 100 11/02/23 20:20 Pulse Rhythm Regular 11/02/23 20:20 Respiratory Rate 11/02/23 20:20 Blood Pressure 157/104 H 11/02/23 20:20 Blood Pressure Mean 121 H 11/02/23 20:20 Blood Pressure Position Sitting 11/02/23 20:20 Pulse Oximetry 99 11/02/23 20:20 Oxygen Delivery Method Room Air 11/02/23 20:20 Vital Signs Temperature 97.0 F L 11/02/23 20:20 Pulse Rate 100 11/02/23 20:20 Respiratory Rate 20 11/02/23 20:20 Blood Pressure 157/104 H 11/02/23 20:20 Pulse Oximetry 99 11/02/23 20:20 Oxygen Delivery Method Room Air 11/02/23 20:20 Temperature 97.0 F L 11/02/23 20:20 Pulse Rate 85 11/02/23 22:57 Respiratory Rate 11/02/23 20:20 Blood Pressure 134/66 11/02/23 22:33 Pulse Oximetry 94 11/02/23 22:57 Oxygen Delivery Method Room Air 11/02/23 20:20 Medications Administered Medications: Discontinued Medications Generic Name Dose Route Start Last Admin Trade Name Freq PRN Reason Stop Dose Admin Sodium Chloride 500 mls @ 500 mls/hr 11/02/23 20:22 11/02/23 22:25 0.9 % Sodium Chloride 500 Ml IV 11/02/23 21:21 Infused .Q1H ONE Infusion Lorazepam 0.5 mg 11/02/23 20:22 11/02/23 20:45 Lorazepam 2 Mg/Ml Inj IVP 11/02/23 20:23 0.5 mg ONCE ONE Administration Ondansetron HCl 4 mg 11/02/23 20:22 11/02/23 20:45 Ondansetron 2 Mg/Ml Inj IVP 11/02/23 20:23 4 mg ONCE ONE Administration Medical Decision Making MDM Narrative Medical decision making narrative: 83-year-old white female with history of vomiting and abdominal pain for the last hour. History of ventral hernia. I think at this time I get a CT scan of her abdomen without contrast to make sure there is no herniation or other intra-abdominal process such as obstruction or diverticulitis. Would also recommend IV fluid, IV Ativan and Zofran, laboratory studies. Disposition pending findings above under clinical response. She and her family are comfortable plan. Addendum 10:[address] Membreno surgery she recommended trying to reduce the hernia, the patient was laid on her back her legs were brought up, a circular motion was done from external to internal up around her umbilicus. I due to her body habitus I really can not palpate a significant herniation. I was able to push quite hard and she did not seem to have a lot of pain. Certainly she could have self reduced. Her pain is much better than when Dr. Prince max tried to reduce her hernia. And I think rescanning would be appropriate. Will consult surgery if she has not reduce the hernia. Addendum 11:10 p.m.: The patient had a 2nd CT it still looks on reduced. Dr. Membreno reviewed and feels the patient needs surgery for repair because of the bowel involvement. Patient last ate at 3 this afternoon. She has had no recent illness, no chest pain recently and her lungs are clear to auscultation, heart is rate and rhythm regular 2/6 systolic murmur occasional ectopic beat. Will get an EKG prior to likely surgical intervention tonight. Lab Data Labs: Lab Results 11/02/23 Range/Units 20:30 WBC 9.86 (4.50-11.00) K/uL RBC 5.06 (4.00-5.20) m/uL Hgb 14.6 (12.0-16.0) gm/dL Hct 45.2 (33.0-51.0) % MCV 89 (80-100) fL MCH 29 (26-34) pg MCHC 32 (32-36) gm/dL RDW Coeff of Helen 13.2 (11.5-15.5) % Plt Count 122 L (140-440) K/uL Neut % (Auto) 80.7 H (42.0-72.0) % Lymph % (Auto) 12.5 L (20-44) % Mcmullen % (Auto) 6.0 (0.0-11.0) % Eos % (Auto) 0.4 (0.0-7.0) % Baso % (Auto) 0.2 (0.0-3.0) % Neut # (Auto) 8.00 H (1.7-7.0) K/uL Lymph # (Auto) 1.20 (0.90-2.90) K/uL Mcmullen # (Auto) 0.60 (0.00-0.90) K/UL Eos # (Auto) 0.04 (0.00-0.50) K/uL Baso # (Auto) 0.02 (0.00-0.30) K/uL Abs Immat Gran (auto) 0.02 (0.00-0.30) K/uL Imm/Tot Granulo (auto) 0.2 % Sodium 137 (135-149) mmol/L Potassium 3.7 (3.6-5.1) mmol/L Chloride 98 (96-114) mmol/L Carbon Dioxide 29 (20-32) mmol/L Anion Gap 10 (7-15) mEq/L BUN 42 H (7-30) mg/dL Creatinine 1.4 (0.5-1.5) mg/dL Estimated Creat Clear 22.17 Estimated GFR 37 ml/min Glucose 130 H (60-115) mg/dL Lactate 1.1 (0.5-1.9) mmol/L Calcium 9.6 (8.4-10.6) mg/dL Total Bilirubin 0.6 (0.1-1.5) mg/dL Direct Bilirubin 0.3 (0.0-0.5) mg/dL AST 21 (12-35) U/L ALT 16 (4-35) U/L Alkaline Phosphatase 77 (40-150) U/L C-Reactive Protein < 0.5 L (0.5-1.0) mg/dL Total Protein 7.4 (6.0-8.3) g/dL Albumin 4.5 (3.3-5.0) g/dL Amylase 71 (18-89) U/L Discharge Plan Discharge Clinical Impression: Abdominal pain, Vomiting Patient Disposition: Admitted As Observation
[2023-11-02 20:41] LABS: Lactate* 1.1 mmol/L (0.5-1.9)
[2023-11-02 20:44] LABS: Basophils Absolute Auto 0.02 K/uL (0.00-0.30); Basophils Percent Auto 0.2 % (0.0-3.0); Eosinophils Absolute Auto 0.04 K/uL (0.00-0.50); Eosinophils Percent Auto 0.4 % (0.0-7.0); Hematocrit 45.2 % (33.0-51.0); Hemoglobin* 14.6 gm/dL (12.0-16.0); Immature Granulocytes Abs Auto 0.02 K/uL (0.00-0.30); Immature Granulocytes Pct Auto 0.2 %; Lymphocytes Percent Auto 12.5 % (20-44); Mean Corpuscular HGB Conc 32 gm/dL (32-36); Mean Corpuscular Hemoglobin 29 pg (26-34); Mean Corpuscular Volume 89 fL (80-100); Neutrophils Percent Auto 80.7 % (42.0-72.0); Platelet Count* 122 K/uL (140-440); RDW Coefficient of Variation % 13.2 % (11.5-15.5); Red Blood Count 5.06 m/uL (4.00-5.20); White Blood Count* 9.86 K/uL (4.50-11.00)
[2023-11-02] MEDS: ONDANSETRON 2 MG/ML inj 4 MG IVP (20:45)
[2023-11-02] MEDS: LORazepam 2 MG/ML inj 0.5 MG IVP (20:45)
[2023-11-02] MEDS: 0.9 % SODIUM CHLORIDE 500 ML 500 ML IV (20:45)
[2023-11-02 20:59] LABS: Albumin* 4.5 g/dL (3.3-5.0); Chloride* 98 mmol/L (96-114); Sodium* 137 mmol/L (135-149)
[2023-11-02 21:00] LABS: Potassium* 3.7 mmol/L (3.6-5.1)
[2023-11-02 21:02] LABS: Amylase* 71 U/L (18-89); Anion Gap 10 mEq/L (7-15); Carbon Dioxide* 29 mmol/L (20-32); Creatinine* 1.4 mg/dL (0.5-1.5); Est. Creatinine Clearance* 22.17; Estimated Glomerular Filt Rate 37 ml/min
[2023-11-02 21:03] LABS: Alanine Aminotransferase* 16 U/L (4-35); Alkaline Phosphatase* 77 U/L (40-150); Aspartate Amino Transferase* 21 U/L (12-35); Bilirubin Direct* 0.3 mg/dL (0.0-0.5); Bilirubin Total* 0.6 mg/dL (0.1-1.5); Blood Urea Nitrogen* 42 mg/dL (7-30); Calcium* 9.6 mg/dL (8.4-10.6); Glucose* 130 mg/dL (60-115); Total Protein* 7.4 g/dL (6.0-8.3)
[2023-11-02 21:22] LABS: C Reactive Protein* < 0.5 mg/dL (0.5-1.0)
[2023-11-02 21:58] LABS: Slide Review Reflex No
--- NOTE | 2023-11-02 22:15 | CRLHL7_ITS ---
For Patients: As a result of the Century Cures Act, medical imaging exams and procedure reports are released immediately into your electronic medical record. You may view this report before your referring provider. If you have questions, please contact your health care provider. Indication: Follow-up hernia Technique: Noncontrast CT through the abdomen and pelvis with multiplanar reformats. Comparison: CT abdomen pelvis performed same day Findings: Lower chest: Unchanged. Hepatobiliary: Unchanged. Spleen: Unremarkable. Pancreas: No acute abnormality appreciated. Adrenal glands: No acute abnormality appreciated. Kidneys: No significant change. Bowel: Increased caliber of dilated small bowel and wall thickening with fecalization of contents upstream to patient`s small bowel within the previously described paraumbilical hernia sac. Vascular: Poorly evaluated on this noncontrast examination. Lymph nodes: No gross lymphadenopathy. Peritoneum: No free air. No free fluid. : Unchanged. Soft tissues: Fat containing umbilical hernia and small bowel containing paraumbilical hernia again noted. Bones: Unchanged. Impression: Re-demonstration of a paraumbilical hernia containing a short loop of small bowel with upstream bowel demonstrating dilation and progressive wall thickening and fecalization of internal contents compatible with persistent and worsening obstruction. Please note that all CT scans at this facility use dose modulation, iterative reconstruction, and/or weight-based dosing when appropriate to reduce radiation dose to as low as reasonably achievable. Dictated by Yg Salcedo MD @ 11/02/2023 11:21:21 PM (Electronically Signed)
--- NOTE | 2023-11-02 23:57 | P.GSHP_ITS ---
History of Present Illness History of Present Illness Date Seen: 11/02/23 Chief complaint: abdominal pain/vomiting Narrative: Magali Sylvester is a 83 year old female presented to emergency room with vomiting and abdominal pain. Patient was seen in the emergency room on Sunday with a painful umbilical bulge. Patient states that she had a known umbilical hernia. On Sunday her hernia was reduced and she was discharged home. Patient states that she was passing gas and having bowel movements. She had some soreness at her belly button but the pain was not as severe as it was on Sunday. Then yesterday she states that her hernia was ?acting funny?. She started to develop increasing pain near her umbilicus. And today she developed nausea and had several episodes of vomiting. She also developed pain towards the top of her stomach. Patient was passing gas. Her last bowel movement was yesterday. I personally reviewed her workup. She was have found to have normal WBC. An abdominal CT was obtained that showed in incarcerated periumbilical hernia containing small intestine. In the emergency room an attempt at reducing her hernia was done but due to patient's habitus it was difficult to tell if her hernia was reduced. A repeat CT scan showed no significant change in her incarcerated hernia. Review of Systems Narrative: General: no fevers HENT: no problems swallowing CV: no shortness of breath Resp: no cough GI: No nausea, vomiting, abdominal pain : no dysuria, no increased urinary frequency, no hematuria Skin: no new rashes Musculoskeletal: no back pain Neuro: no muscle weakness Psyche: no depression, no anxiety PFSH PFSH Medical History (Updated 11/03/23 @ 00:02 by Kenneth Esqueda MD) Hypertension ?I10 - Essential (primary) hypertension (ICD-10) Surgical History (Updated 11/03/23 @ 00:01 by Kenneth Esqueda MD) History of laparoscopic cholecystectomy ?Z90.49 - Acquired absence of other specified parts of digestive tract (ICD- 10) Status post D&C ?Z98.890 - Other specified postprocedural states (ICD-10) Status post tonsillectomy and adenoidectomy ?Z90.89 - Acquired absence of other organs (ICD-10) Status post hysterectomy ?Z90.710 - Acquired absence of both cervix and uterus (ICD-10) Social History Narrative: No tobacco or alcohol use. Lives with son. 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 Smoking Status: Unknown if ever smoked How often do you have a drink containing alcohol: never AUDIT-C Alcohol total score: 0 Non-prescribed substance use: denies use Caffeine: Yes Meds Home Medications and Allergies Home Medications ?Medication ?Instructions ?Recorded ?Confirmed ?Type aspirin 81 mg capsule 81 mg PO DAILY 10/10/21 09/26/22 History multivitamin 1 tab PO DAILY 10/10/21 09/26/22 History naproxen sodium 220 mg tablet 220 mg PO QDAY PRN 08/30/22 09/26/22 History (Aleve) Allergies Allergy/AdvReac Type Severity Reaction Status Date / Time Penicillins Allergy Verified 09/26/22 09:44 Exam Narrative: Exam Narrative: General appearance: Alert, cooperative, and in no distress Pulmonary: Chest symmetric, lungs clear bilaterally Cardiovascular Heart: Regular rate and rhythm, S1, S2, no murmurs/rubs/gallops Gastrointestinal Abdominal: soft, not distended, no tenderness to palpation throughout the abdomen. Only mild tenderness to palpation below the umbilicus. The skin inferior to umbilicus has resolving ecchymosis. A subcutaneous bulge was palpated and gush of air was heard. Patient's pain did not change. It was difficult to tell if the hernia was completely reduced or there was residual hernia sac or inflammation inferiorly and to the right of the umbilicus. Skin: Normal skin color, texture, and turgor. No rashes or lesions. Psychiatric: Alert, cooperative, normal affect. Const: Vital Signs, click to edit/add: Vital Signs - 24 hr 11/02/23 20:20 11/02/23 21:35 11/02/23 21:36 Temperature 97.0 F L Pulse Rate 83 82 Pulse Rate [Left P ulse Oximeter] 100 Respiratory Rate 20 Blood Pressure 142/89 H Blood Pressure [Ri ght Upper Arm] 157/104 H Pulse Oximetry 99 93 94 Oxygen Delivery Me thod Room Air 11/02/23 21:45 11/02/23 22:00 11/02/23 22:03 Temperature Pulse Rate 82 85 94 Pulse Rate [Left P ulse Oximeter] Respiratory Rate Blood Pressure 163/102 H Blood Pressure [Ri ght Upper Arm] Pulse Oximetry 95 95 96 Oxygen Delivery Me thod 11/02/23 22:04 11/02/23 22:15 11/02/23 22:30 Temperature Pulse Rate 91 88 72 Pulse Rate [Left P ulse Oximeter] Respiratory Rate Blood Pressure Blood Pressure [Ri ght Upper Arm] Pulse Oximetry 96 96 96 Oxygen Delivery Me thod 11/02/23 22:33 11/02/23 22:57 Temperature Pulse Rate 82 85 Pulse Rate [Left P ulse Oximeter] Respiratory Rate Blood Pressure 134/66 Blood Pressure [Ri ght Upper Arm] Pulse Oximetry 93 94 Oxygen Delivery Me thod Progress Note:A&P Assessment and plan (1) Incarcerated ventral hernia: Status: Acute Assessment and Plan: 83-year-old female presents was incarcerated periumbilical/ventral hernia. I discussed with the patient and her daughter her CT findings. It is difficult to tell if her hernia was reduced on my exam. Since this is patient's second presentation with incarcerated periumbilical hernia, I recommended to proceed with urgent open ventral hernia repair. The procedure was discussed in detail. The risks associated procedure including infection, bleeding, injury to intra- abdominal organs, and hernia recurrence were all discussed with the patient, and she agreed to proceed.
[2023-11-03] VITALS (25 sets, daily range): BP systolic 127–182; BP diastolic 58–110; PULSE 68–98; RESP 12–20; TEMP 36.1–37.1; O2SAT 90–97
[2023-11-03] MEDS: LACTATED RINGERS 1000 ML 1,000 ML 75 ML IV ×2 (00:10→05:41)
[2023-11-03] MEDS: CEFAZOLIN 2 GM INJ IVP (00:29)
[2023-11-03] MEDS: BUPIVACAINE 0.25% 30 ML 20 ML INJECTION (02:00)
--- NOTE | 2023-11-03 02:25 | P.GSOP_ITS ---
Operative Note Date of procedure: 11/03/23 Pre-op diagnosis: 1. Incarcerated periumbilical hernia. Post-op diagnosis: 1. Incarcerated infraumbilical hernia containing omentum. 2. Umbilical hernia. Type of Procedure: 1. Open ventral hernia repair with Phasix mesh. Indications: 83-year-old female presented to emergency room with vomiting and periumbilical pain. Patient was seen in the emergency room 5 days ago with periumbilical pain and was diagnosed with incarcerated umbilical hernia. Her hernia was reduced and patient was discharged home at that time. However, she developed increasing pain starting yesterday. She started vomiting today. Upon her workup she was found to have normal WBC. An abdominal CT was obtained that showed small intestine incarcerated in the periumbilical fascial defect. In the emergency room an attempt was made to reduce her hernia but because of the patient's habitus it was difficult to tell if the hernia was reduced. A repeat CT scan was obtained that showed no change in her hernia and hernia was not reduced. On clinical exam patient had mild tenderness to palpation just inferior to the umbilicus. She had resolving ecchymosis of the infraumbilical skin. She had no peritoneal signs. Given patient's clinical history and her second episode of incarceration of this hernia, open ventral hernia repair was recommended. The procedure was discussed in detail. The risks associated procedure including infection, bleeding, injury to intra-abdominal organs, and hernia recurrence were all discussed with the patient, and she agreed to proceed. Procedure Description: After discussing the risks and benefits of the procedure, the patient signed informed consent.? The operative site was marked and the patient was brought to the operating room and placed on the operating table in supine position.? Care was taken to pad the patient's pressure points.?? The patient was then intubated by anesthesia.?? The operative site was then prepped and draped in the usual sterile fashion.? A time-out was then performed. A lower midline surgical incision was made with a scalpel just inferior to the umbilicus. Subcutaneous fat was divided with cautery. Hernia sac was identified and incarcerated omentum was noted in the hernia sac. There was sm all amount of hemorrhagic fluid in the hernia sac. The hernia sac was opened and the fluid was suctioned out. The omentum in the hernia sac was ecchymotic but not necrotic. The omentum was then mobilized off the inside wall of the hernia sac. It was firm to palpation due to inflammation but there were no masses. During mobilization of the omentum hernia sac was tearing. The incarcerated omentum was then excised in pieces with clamps and Vicryl ties. No small intestine was incarcerated in this hernia sac. The excised portions of omentum were not sent to pathology. The anterior fascia of the hernia defect was then grasped with Oumou clamps. Preperitoneal space was developed with cautery. The fascia surrounding the defect was palpated and a second umbilical hernia defect was identified. I then proceeded with mobilized the umbilicus off the anterior fascia. This was done with cautery. The umbilical fascial defect was the same size as the infraumbilical fascial defect. Two fascial defects were by 1 cm fascial bridge. This fascial bridge was divided and the common defect was created. The common fascial defect was measuring 5 x 3 cm. The anterior fascia was then grasped and additional preperitoneal space was developed for mesh placement. An opening was created in the peritoneum on the right side laterally during our dissection, and this was closed with interrupted Vicryl sutures. Hemostasis was achieved with cautery. When preperitoneal space was developed, Phasix ST 8 x 12 cm mesh was then placed into the preperitoneal space. The mesh was secured in place with interrupted 0-0 Nurolon transfascial sutures. The anterior fascia was then closed with a running 0-0 Vicryl suture over the mesh. Subcutaneous space was irrigated with normal saline. Local anesthetic was injected in subcutaneous space. I then placed a 15 round Eduardo drain into the subcutaneous space overlying the fascia through a separate skin incision just to the right and inferior to the midline laparotomy incision. The drain was secured in place with 3-0 nylon suture. Subcutaneous fat was then reapproximated with interrupted 2-0 Vicryl sutures. The dermis was reapproximat ed with interrupted 3-0 Vicryl sutures. The skin was closed with a running 4-0 Monocryl stitch. Steri-Strips and sterile dressings were placed over the incision. Sterile dressings were then applied. ? The patient was then woken and transported to the recovery area in stable condition. ? The patient tolerated the procedure well. Findings: Two separate fascial defects-infraumbilical containing incarcerated inflamed omental fat and umbilical hernia defect containing preperitoneal fat. Anesthesia: GETA Surgeon: Kenneth Esqueda MD Estimated blood loss (mL): 20 Condition: stable Disposition: PACU
--- NOTE | 2023-11-03 02:42 | P.ANES_ITS ---
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
--- NOTE | 2023-11-03 02:42 | W.ANESCHARGE ---
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
--- NOTE | 2023-11-03 03:05 | SUR.PHASEI ---
patient met discharge criteria per anesthesia
[2023-11-03] MEDS: HYDROmorphone 0.5 mg/0.5 ml inj IVP (06:20)
--- NOTE | 2023-11-03 06:29 | PC.NURSE ---
Arrived to the floor at 0300. Daughter at bedside. Pt awake and alert but appears to be a bit foggy. Dressing to abdomen c/d/i. LUNA drain patent. Ice to site. Pt denies n/v. Placed on 1L of oxygen as sats dipped when sleep.
--- NOTE | 2023-11-03 11:54 | P.NB_ITS ---
Nerve Block Nerve Block Time Seen by Provider: 11:15 Date Seen: 11/03/23 Type of block requested by surgeon for post-operative analgesia: TAP Side: bilateral Time out performed: Yes Verification of patient name: Yes Verification of date of : Yes Site marking: site marked Name of person performing procedure: Greg Wills Continuous monitoring Was continuous monitoring of O2 sat, B/P, environmental monitoring technician, recorded every 15 minutes?: Yes Procedure Checklist: sterile prep, needles and gloves Ultrasound guided. Images saved: Yes Medications given in 5ml increments after negative aspiration: Marcaine %: 0.25 mL: 30 Needle gauge: 20 and Exparel mL: 10 Needle gauge: 20 Patient tolerated procedure well: Yes Additional comments: Injected in 5 mL increments after negative aspiration, verbal consent obtained from pt, 1% lidocaine for skin numbing. Block Charges Block Charge (with Pro Fee): TAP Bilateral Use of Ultrasound Machine for Block: Yes- US Guidance/pain block
--- NOTE | 2023-11-03 17:18 | P.IMCN_ITS ---
Date of Consult Patient: [facility] Patient Consult date: 11/03/23 Requesting Physician: General Surgery Primary Care Provider: Pato Simms MD Consult Narrative Reason for consult: HTN Narrative: Magali Sylvester is a 83 year old female with hypertension and a ventral hernia who had a painful episode where she could not reduce her hernia on 10/29/2023. She came to the emergency department for that and it was reduced in Trendelenburg. Her symptoms resolved and she was discharged home. Yesterday she again developed abdominal pain which lasted for an hour and then she had an episode of emesis. The abdominal pain was diffuse. Although no ventral hernia was noted on exam in the emergency department, abdominal CT was obtained which showed the ventral hernia. Reduction was attempted and a 2nd CT showed that the ventral hernia was still present and on reduced. She underwent surgical intervention last night with Dr. Esqueda from General surgery. This morning she is feeling well and is very hungry. She has been a NPO overnight with the exception of a few ice chips. Her son, Carlso, is here with her today. Review of Systems Status of ROS: Reports: 10 or more systems reviewed and unremarkable except as noted in History and below PFSH [facility] Medical History (Updated 11/03/23 @ 17:29 by Olga Sloan MD) Cataract ?H26.9 - Unspecified cataract (ICD-10) Gallstone pancreatitis ?K85.10 - Biliary acute pancreatitis without necrosis or infection (ICD-10) Hypertension ?I10 - Essential (primary) hypertension (ICD-10) Surgical History (Updated 11/03/23 @ 17:30 by Olga Sloan MD) S/P repair of recurrent ventral hernia ?Z98.890 - Other specified postprocedural states (ICD-10) ?Z87.19 - Personal history of other diseases of the digestive system (ICD-10) History of laparoscopic cholecystectomy ?Z90.49 - Acquired absence of other specified parts of digestive tract (ICD- 10) Status post D&C ?Z98.890 - Other specified postprocedural states (ICD-10) Status post tonsillectomy and adenoidectomy ?Z90.89 - Acquired absence of other organs (ICD-10) Status post hysterectomy ?Z90.710 - Acquired absence of both cervix and uterus (ICD-10) Social History Narrative: No tobacco or alcohol use. Lives with son. 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 Smoking Status: Unknown if ever smoked How often do you have a drink containing alcohol: never AUDIT-C Alcohol total score: 0 Non-prescribed substance use: denies use Caffeine: Yes Meds Home Medications and Allergies Home Medications ?Medication ?Instructions ?Recorded ?Confirmed ?Type aspirin 81 mg capsule 81 mg PO DAILY 10/10/21 11/03/23 History multivitamin 1 tab PO DAILY 10/10/21 11/03/23 History hydrochlorothiazide 12.5 mg capsule 12.5 mg PO DAILY 11/03/23 11/03/23 History Allergies Allergy/AdvReac Type Severity Reaction Status Date / Time Penicillins Allergy Verified 09/26/22 09:44 Exam Narrative: Exam Narrative: General: No acute distress. Awake alert oriented x3. HEENT: Normocephalic atraumatic, pupils equally round and reactive to light and accommodation. Oropharynx clear. Mucous membranes are moist. No cervical lymphadenopathy, thyromegaly or carotid bruits. No JVD. Cardiovascular: Regular rate and rhythm. No murmurs, gallops, or rubs. Chest: No increased work of breathing. Clear to auscultation bilaterally. No crackles or wheezes. Abdomen: Bowel sounds present. Mildly distended, postsurgical, bandages are clean, dry, and intact. Drain in place with scant amount of serosanguineous fluid. Extremities: No edema, no cyanosis or clubbing. Skin: No jaundice, no pallor, no rashes. Const: Vital Signs, click to edit/add: Vital Signs - 24 hr 11/02/23 20:20 11/02/23 21:35 11/02/23 21:36 Temperature 97.0 F L Pulse Rate 83 82 Pulse Rate [Left P ulse Oximeter] 100 Pulse Rate [Right Pulse Oximeter] Respiratory Rate 20 Blood Pressure 142/89 H Blood Pressure [Le ft Arm] Blood Pressure [Ri ght Upper Arm] 157/104 H Pulse Oximetry 99 93 94 Oxygen Delivery Me thod Room Air Oxygen Flow Rate 11/02/23 21:45 11/02/23 22:00 11/02/23 22:03 Temperature Pulse Rate 82 85 94 Pulse Rate [Left P ulse Oximeter] Pulse Rate [Right Pulse Oximeter] Respiratory Rate Blood Pressure 163/102 H Blood Pressure [Le ft Arm] Blood Pressure [Ri ght Upper Arm] Pulse Oximetry 95 95 96 Oxygen Delivery Me thod Oxygen Flow Rate 11/02/23 22:04 11/02/23 22:15 11/02/23 22:30 Temperature Pulse Rate 91 88 72 Pulse Rate [Left P ulse Oximeter] Pulse Rate [Right Pulse Oximeter] Respiratory Rate Blood Pressure Blood Pressure [Le ft Arm] Blood Pressure [Ri ght Upper Arm] Pulse Oximetry 96 96 96 Oxygen Delivery Me thod Oxygen Flow Rate 11/02/23 22:33 11/02/23 22:57 11/03/23 02:27 Temperature 98.3 F Pulse Rate 82 85 86 Pulse Rate [Left P ulse Oximeter] Pulse Rate [Right Pulse Oximeter] Respiratory Rate 14 Blood Pressure 134/66 142/92 H Blood Pressure [Le ft Arm] Blood Pressure [Ri ght Upper Arm] Pulse Oximetry 93 94 96 Oxygen Delivery Me thod Nasal Cannula Oxygen Flow Rate 2 11/03/23 02:30 11/03/23 02:35 11/03/23 02:40 Temperature 98.3 F 98.3 F 98.3 F Pulse Rate 83 85 83 Pulse Rate [Left P ulse Oximeter] Pulse Rate [Right Pulse Oximeter] Respiratory Rate 14 12 12 Blood Pressure 145/66 H 142/77 H 153/78 H Blood Pressure [Le ft Arm] Blood Pressure [Ri ght Upper Arm] Pulse Oximetry 96 96 97 Oxygen Delivery Me thod Nasal Cannula Nasal Cannula Nasal Cannula Oxygen Flow Rate 2 2 2 11/03/23 02:45 11/03/23 02:50 11/03/23 02:55 Temperature 98.3 F 98.3 F 98.2 F Pulse Rate 86 86 85 Pulse Rate [Left P ulse Oximeter] Pulse Rate [Right Pulse Oximeter] Respiratory Rate 16 14 12 Blood Pressure 161/77 H 158/86 H 165/92 H Blood Pressure [Le ft Arm] Blood Pressure [Ri ght Upper Arm] Pulse Oximetry 94 93 91 Oxygen Delivery Me thod Room Air Room Air Room Air Oxygen Flow Rate 0 0 0 11/03/23 03:15 11/03/23 03:30 11/03/23 03:45 Temperature 97.1 F L Pulse Rate 85 81 82 Pulse Rate [Left P ulse Oximeter] Pulse Rate [Right Pulse Oximeter] Respiratory Rate 14 14 14 Blood Pressure 178/83 H 182/98 H 174/105 H Blood Pressure [Le ft Arm] Blood Pressure [Ri ght Upper Arm] Pulse Oximetry 91 91 90 Oxygen Delivery Me thod Room Air Room Air Room Air Oxygen Flow Rate 0 0 0 11/03/23 03:52 11/03/23 04:00 11/03/23 04:30 Temperature 97.0 F L 97.1 F L Pulse Rate 98 78 75 Pulse Rate [Left P ulse Oximeter] Pulse Rate [Right Pulse Oximeter] Respiratory Rate 14 16 16 Blood Pressure 182/88 H 169/80 H 151/71 H Blood Pressure [Le ft Arm] Blood Pressure [Ri ght Upper Arm] Pulse Oximetry 92 93 91 Oxygen Delivery Me thod Room Air Nasal Cannula Nasal Cannula Oxygen Flow Rate 1 1 11/03/23 05:01 11/03/23 06:00 11/03/23 07:00 Temperature 97.1 F L Pulse Rate 77 76 68 Pulse Rate [Left P ulse Oximeter] Pulse Rate [Right Pulse Oximeter] Respiratory Rate 16 16 16 Blood Pressure 133/83 141/59 H 127/58 L Blood Pressure [Le ft Arm] Blood Pressure [Ri ght Upper Arm] Pulse Oximetry 93 94 95 Oxygen Delivery Me thod Nasal Cannula Nasal Cannula Nasal Cannula Oxygen Flow Rate 1 1 1 11/03/23 07:31 11/03/23 08:00 11/03/23 08:00 Temperature 97.8 F 97.8 F Pulse Rate 68 68 Pulse Rate [Left P ulse Oximeter] Pulse Rate [Right Pulse Oximeter] Respiratory Rate 16 16 16 Blood Pressure 139/67 139/67 Blood Pressure [Le ft Arm] Blood Pressure [Ri ght Upper Arm] Pulse Oximetry 93 93 93 Oxygen Delivery Me thod Nasal Cannula Nasal Cannula Nasal Cannula Oxygen Flow Rate 1 1 1 11/03/23 09:00 11/03/23 12:00 11/03/23 12:00 Temperature 97.8 F 98.2 F 98.2 F Pulse Rate 78 77 Pulse Rate [Left P ulse Oximeter] Pulse Rate [Right Pulse Oximeter] 77 Respiratory Rate 16 18 18 Blood Pressure 141/75 H 165/73 H Blood Pressure [Le ft Arm] 165/73 H Blood Pressure [Ri ght Upper Arm] Pulse Oximetry 95 95 95 Oxygen Delivery Me thod Nasal Cannula Room Air Room Air Oxygen Flow Rate 1 Labs Labs: Short CBC 11/02/23 Range/Units 20:30 WBC 9.86 (4.50-11.00) K/uL Hgb 14.6 (12.0-16.0) gm/dL Hct 45.2 (33.0-51.0) % Plt Count 122 L (140-440) K/uL BMP 11/02/23 20:30 Sodium 137 Potassium 3.7 Chloride 98 Carbon Dioxide 29 BUN 42 H Creatinine 1.4 Glucose 130 H Calcium 9.6 Liver Function 11/02/23 Range/Units 20:30 Total Bilirubin 0.6 (0.1-1.5) mg/dL Direct Bilirubin 0.3 (0.0-0.5) mg/dL AST 21 (12-35) U/L ALT 16 (4-35) U/L Alkaline Phosphatase 77 (40-150) U/L Albumin 4.5 (3.3-5.0) g/dL Assessment and Plan Assessment and plan (1) S/P repair of recurrent ventral hernia: Problem comment: 11/03/23 Open ventral hernia repair with Phasix mesh by Dr. Esqueda for incarcerated infraumbilical hernia containing omentum - routine postop cares - starting clears today, may be able to advance diet later today, anticipating possible discharge home tomorrow if able to tolerate advancing diet Status: Acute (2) Incarcerated ventral hernia: Status: Resolved (3) Hypertension: Problem comment: Continue home dosing of hydrochlorothiazide Status: Chronic
[2023-11-03] MEDS: SODIUM CHLORIDE 0.9 % (FLUSH) 10 ML SYRINGE 5 ML IVF (20:06)
[2023-11-04 03:00] VITALS: BP 122/71; PULSE 94; RESP 18; TEMP 36.4; O2SAT 94
[2023-11-04] MEDS: ACETAMINOPHEN 325 MG TABLET 650 MG PO (04:38)
--- NOTE | 2023-11-04 06:43 | PC.NURSE ---
End of shift note [id number]: Pt alert & oriented x 4 and able to make needs known. Pt has been denying abdominal pain when asked with no N/V noted. Pt reports passing gas though has not yet had a BM after surgery. Bowel sounds noted to be hypoactive x 4. Pt tolerating CL diet. PRN Tylenol administered for c/o headache. Surgical incision to abdomen covered with dressing which is C/D/I. LUNA drain in place to R abdomen with 45 mL of bloody drainage noted throughout the shift. Professor Of Forest[employer] provided education regarding stripping and emptying drain. Pt has been performing IS after encouragement provided. Abdominal binder worn. Pt transferring/ambulating with SBA using FWW and using call light appropriately. IV to R AC patent and SL. VSS. Pt has been afebrile and on RA throughout the shift. Call light within reach.
[2023-11-04 07:00] VITALS: BP 130/65; PULSE 73; RESP 18; TEMP 36.8; O2SAT 92
[2023-11-04 07:10] LABS: Basophils Absolute Auto 0.03 K/uL (0.00-0.30); Basophils Percent Auto 0.4 % (0.0-3.0); Eosinophils Absolute Auto 0.04 K/uL (0.00-0.50); Eosinophils Percent Auto 0.5 % (0.0-7.0); Hematocrit 38.9 % (33.0-51.0); Hemoglobin* 12.4 gm/dL (12.0-16.0); Immature Granulocytes Abs Auto 0.01 K/uL (0.00-0.30); Immature Granulocytes Pct Auto 0.1 %; Lymphocytes Percent Auto 17.6 % (20-44); Mean Corpuscular HGB Conc 32 gm/dL (32-36); Mean Corpuscular Hemoglobin 29 pg (26-34); Mean Corpuscular Volume 90 fL (80-100); Monocytes Percent Auto 8.8 % (0.0-11.0); Neutrophils Percent Auto 72.6 % (42.0-72.0); Platelet Count* 105 K/uL (140-440); RDW Coefficient of Variation % 13.4 % (11.5-15.5); Red Blood Count 4.31 m/uL (4.00-5.20); White Blood Count* 7.61 K/uL (4.50-11.00)
[2023-11-04 07:13] LABS: Slide Review Reflex No
[2023-11-04 07:28] LABS: Chloride* 101 mmol/L (96-114); Potassium* 3.7 mmol/L (3.6-5.1); Sodium* 134 mmol/L (135-149)
[2023-11-04 07:31] LABS: Anion Gap 6 mEq/L (7-15); Carbon Dioxide* 27 mmol/L (20-32); Est. Creatinine Clearance* 31.04; Estimated Glomerular Filt Rate 55 ml/min
[2023-11-04 07:32] LABS: Blood Urea Nitrogen* 29 mg/dL (7-30); Calcium* 8.5 mg/dL (8.4-10.6); Glucose* 100 mg/dL (60-115)
--- NOTE | 2023-11-04 07:41 | PM.IMPN1 ---
Progress Note: A&P Assessment and plan (1) S/P repair of recurrent ventral hernia: Problem details: 11/03/23 Open ventral hernia repair with Phasix mesh by Dr. Esqueda for incarcerated infraumbilical hernia containing omentum - routine postop cares - she is doing well. I spoke with Dr. Esqueda who agrees with advancing today, anticipating probable discharge home today if able to tolerate advancing diet Status: Acute (2) Incarcerated ventral hernia: Status: Resolved (3) Hypertension: Problem details: Continue hydrochlorothiazide Status: Chronic Subjective Time Seen by Provider: : Date Seen: 11/04/23 Interval history: Magali is doing well. + Flatus. Abdominal pain minimal. She is very hungry! She notes that she typically has a BM 2-3 times a week. Her last BM was last , so she doesn't expect to have another until tomorrow. Exam Narrative: Exam Narrative: General: No acute distress. Awake alert oriented. Oropharynx: Mucous membranes moist. Cardiovascular: Regular rate and rhythm. No murmurs, gallops, or rubs. Chest: No increased work of breathing. Clear to auscultation bilaterally. No crackles or wheezes. Abdomen: Bowel sounds present. Less distended, bandages are clean, dry, and intact. Mildly tender to palpation, no rebound tenderness or guarding. Drain in place with scant amount of serosanguineous fluid. Const: Vital Signs, click to edit/add: Vital Signs - 24 hr 11/03/23 08:00 11/03/23 08:00 11/03/23 09:00 Temperature 97.8 F 97.8 F Pulse Rate 68 78 Pulse Rate [Right Pulse Oximeter] Respiratory Rate 16 16 16 Blood Pressure 139/67 141/75 H Blood Pressure [Le ft Arm] Pulse Oximetry 93 93 95 Oxygen Delivery Me thod Nasal Cannula Nasal Cannula Nasal Cannula Oxygen Flow Rate 1 1 1 Fraction of Inspir ed Oxygen 11/03/23 12:00 11/03/23 12:00 11/03/23 15:00 Temperature 98.2 F 98.2 F Pulse Rate 77 Pulse Rate [Right Pulse Oximeter] 77 Respiratory Rate 18 18 18 Blood Pressure 165/73 H Blood Pressure [Le ft Arm] 165/73 H Pulse Oximetry 95 95 Oxygen Delivery Me thod Room Air Room Air Oxygen Flow Rate Fraction of Inspir ed Oxygen 11/03/23 15:00 11/03/23 15:00 11/03/23 19:45 Temperature 98.7 F 97.6 F Pulse Rate Pulse Rate [Right Pulse Oximeter] 76 86 Respiratory Rate 18 18 18 Blood Pressure Blood Pressure [Le ft Arm] 162/110 H 144/84 H Pulse Oximetry 95 95 94 Oxygen Delivery Me thod Room Air Room Air Room Air Oxygen Flow Rate Fraction of Inspir ed Oxygen 18 11/03/23 23:00 11/03/23 23:22 11/03/23 23:23 Temperature 98.2 F Pulse Rate Pulse Rate [Right Pulse Oximeter] 86 85 Respiratory Rate 20 20 20 Blood Pressure Blood Pressure [Le ft Arm] 147/86 H Pulse Oximetry 96 96 Oxygen Delivery Me thod Room Air Room Air Oxygen Flow Rate Fraction of Inspir ed Oxygen 11/04/23 03:00 Temperature 97.5 F L Pulse Rate Pulse Rate [Right Pulse Oximeter] 94 Respiratory Rate 18 Blood Pressure Blood Pressure [Le ft Arm] 122/71 Pulse Oximetry 94 Oxygen Delivery Me thod Room Air Oxygen Flow Rate Fraction of Inspir ed Oxygen Labs Labs: Laboratory Results - last 24 hr 11/04/23 06:23 WBC 7.61 RBC 4.31 Hgb 12.4 Hct 38.9 MCV 90 MCH 29 MCHC 32 RDW Coeff of Helen 13.4 Plt Count 105 L Neut % (Auto) 72.6 H Lymph % (Auto) 17.6 L [place] % (Auto) 8.8 Eos % (Auto) 0.5 Baso % (Auto) 0.4 Neut # (Auto) 5.50 Lymph # (Auto) 1.30 [place] # (Auto) 0.70 Eos # (Auto) 0.04 Baso # (Auto) 0.03 Abs Immat Gran (auto) 0.01 Imm/Tot Granulo (auto) 0.1 Sodium 134 L Potassium 3.7 Chloride 101 Carbon Dioxide 27 Anion Gap 6 L BUN 29 Creatinine 1.0 Estimated Creat Clear 31.04 Estimated GFR 55 Glucose 100 Calcium 8.5
--- NOTE | 2023-11-04 07:54 | PM.DS1 ---
DS: Providers Provider Date Seen: 11/04/23 Primary care physician: Pato Simms MD Attending Physician on discharge: Kenneth Esqueda MD DS: Diagnosis Discharge Diagnosis (1) S/P repair of recurrent ventral hernia: Status: Acute Problem details: 11/03/23 Open ventral hernia repair with Phasix mesh DS: Summary Hospital Course Hospital Course: 83-year-old female presented to emergency room with incarcerated periumbilical hernia. She underwent an open ventral hernia repair with Phasix mesh. Subcutaneous drain was placed intraoperatively. Patient did well postoperatively. Her diet was advanced. She was passing gas. She denies any nausea or vomiting. LUNA drain was putting out small amounts of serosanguineous drainage. Time Spent with Patient Time attestation: Total time spent providing and/or coordinating discharge services: Exam Narrative: Exam Narrative: Abdomen is soft, not distended, midline laparotomy incision is covered with clean Steri-Strips. LUNA drain is in place on the right side of the abdomen and has small amount of serosanguineous fluid in the bulb. Patient's abdomen is not tender to palpation. Const: Vital Signs, click to edit/add: Vital Signs - 24 hr 11/03/23 08:00 11/03/23 08:00 11/03/23 09:00 Temperature 97.8 F 97.8 F Pulse Rate 68 78 Pulse Rate [Right Pulse Oximeter] Respiratory Rate 16 16 16 Blood Pressure 139/67 141/75 H Blood Pressure [Le ft Arm] Pulse Oximetry 93 93 95 Oxygen Delivery Me thod Nasal Cannula Nasal Cannula Nasal Cannula Oxygen Flow Rate 1 1 1 Fraction of Inspir ed Oxygen 11/03/23 12:00 11/03/23 12:00 11/03/23 15:00 Temperature 98.2 F 98.2 F Pulse Rate 77 Pulse Rate [Right Pulse Oximeter] 77 Respiratory Rate 18 18 18 Blood Pressure 165/73 H Blood Pressure [Le ft Arm] 165/73 H Pulse Oximetry 95 95 Oxygen Delivery Me thod Room Air Room Air Oxygen Flow Rate Fraction of Inspir ed Oxygen 11/03/23 15:00 11/03/23 15:00 11/03/23 19:45 Temperature 98.7 F 97.6 F Pulse Rate Pulse Rate [Right Pulse Oximeter] 76 86 Respiratory Rate 18 18 18 Blood Pressure Blood Pressure [Le ft Arm] 162/110 H 144/84 H Pulse Oximetry 95 95 94 Oxygen Delivery Me thod Room Air Room Air Room Air Oxygen Flow Rate Fraction of Inspir ed Oxygen 18 11/03/23 23:00 11/03/23 23:22 11/03/23 23:23 Temperature 98.2 F Pulse Rate Pulse Rate [Right Pulse Oximeter] 86 85 Respiratory Rate 20 20 20 Blood Pressure Blood Pressure [Le ft Arm] 147/86 H Pulse Oximetry 96 96 Oxygen Delivery Me thod Room Air Room Air Oxygen Flow Rate Fraction of Inspir ed Oxygen 11/04/23 03:00 Temperature 97.5 F L Pulse Rate Pulse Rate [Right Pulse Oximeter] 94 Respiratory Rate 18 Blood Pressure Blood Pressure [Le ft Arm] 122/71 Pulse Oximetry 94 Oxygen Delivery Me thod Room Air Oxygen Flow Rate Fraction of Inspir ed Oxygen DS: Data Data Completed and Pending Labs on day of discharge: Labs from last 24 hours 11/04/23 06:23 WBC 7.61 RBC 4.31 Hgb 12.4 Hct 38.9 MCV 90 MCH 29 MCHC 32 RDW Coeff of Helen 13.4 Plt Count 105 L Neut % (Auto) 72.6 H Lymph % (Auto) 17.6 L [place] % (Auto) 8.8 Eos % (Auto) 0.5 Baso % (Auto) 0.4 Neut # (Auto) 5.50 Lymph # (Auto) 1.30 [place] # (Auto) 0.70 Eos # (Auto) 0.04 Baso # (Auto) 0.03 Abs Immat Gran (auto) 0.01 Imm/Tot Granulo (auto) 0.1 Sodium 134 L Potassium 3.7 Chloride 101 Carbon Dioxide 27 Anion Gap 6 L BUN 29 Creatinine 1.0 Estimated Creat Clear 31.04 Estimated GFR 55 Glucose 100 Calcium 8.5 Discharge Plan Discharge Disposition: Home w/ Parent or Adult Discharging Surgeon: Kenneth Esqueda Follow-Up Appointment: 1 week SunNov 06 at 10 amm HFN clinic Prescriptions: No Action aspirin 81 mg capsule 81 mg PO DAILY multivitamin Tablet 1 tab PO DAILY hydrochlorothiazide 12.5 mg capsule 12.5 mg PO DAILY Activity Level: No strenuous activity Activity Detail: No strenuous activity or lifting more than 15-20 lbs for 4-6 weeks. Take laxative such as MiraLax or milk of magnesia daily for the first 7-10 days after surgery to prevent constipation. Discharge Diet: Regular Patient Instructions: Open Herniorrhaphy (DC), Deep Sedation (DC), Post-Operative Instructions: Hernia Repair Additional Instructions: Please teach the family how to do drain cares. Wear abdominal binder on all the time except for when taking a shower. Follow-up: Kenneth Esqueda MD [Staff Physician] - (Sunday 10:00 a.m. [facility]) Discharge Orders: Discharge Order (Routine); Ordered 11/04/23 Ordered By: Kenneth Esqueda
[2023-11-04] MEDS: hydroCHLOROthiazide 12.5 MG CAPSULE PO (09:09)
[2023-11-04] MEDS: SODIUM CHLORIDE 0.9 % (FLUSH) 10 ML SYRINGE 5 ML IVF (09:09)
[2023-11-04] MEDS: MULTIVITAMIN/MINERALS 1 TABLET 1 TAB PO (09:09)
[2023-11-04 11:00] VITALS: BP 118/71; PULSE 82; RESP 18; TEMP 36.5; O2SAT 97
--- NOTE | 2023-11-04 12:51 | PC.NURSE ---
Addendum entered by Mayra Shore RN 11/04/23 12:58: Patient denies pain throughout shift. Original Note: Discharge Summary: Patient pleasant and cooperative. Afebrile. Dressing to abdomen removed by , steri-strips C/D/I. LUNA drain patent and drain sponge dressing changed. Family and patient taught care of LUNA drain. Patient advanced to full liquid and then regular diet. Tolerated with no nausea. Passing flatus. Up to bathroom and walking in hallway with SBA. Patient discharged home at 1216 with all personal belongings accompanied by family. Discharge instructions including diagnosis, medications and follow up appointment and discussed with patient and family and voiced understanding.
== END 2023-11-04 12:16 | disposition home or self-care (01) ==
LOC: ED 23:51 → OR 11-03 00:59 → MEDSURG 11-03 03:08
PROVIDERS: Family Medicine; Emergency Provider Family Medicine; PCP Family Medicine; Visit Provider Surgery
PROC: (CPT 49594; principal; 2023-11-03)
DX: K43.6 Other and unspecified ventral hernia with obstruction, without gangrene (principal); K42.0 Umbilical hernia with obstruction, without gangrene; R10.84 Generalized abdominal pain; G89.18 Other acute postprocedural pain; R11.10 Vomiting, unspecified; I10 Essential (primary) hypertension
CPT/HCPCS: 49594; 00832; 36415; 64488; 74176; 76942; 80048; 80076; 82150; 83605; 85025; 86140; 93005; 94761; 99100; 99140; 99285; A9153; A9270; C1781; C9290; J0330; J0665; J0690; J1100; J1170; J1885; J2060; J2405; J2704; J2710; J3010; J7030; J7120